=== PATIENT | male | born 1995 | race Two or more races ===

== ENCOUNTER 2022-10-03 11:52 | Outpatient (AMB) | payer OTHER, SELFPAY ==
--- NOTE | 2022-10-03 11:56 | MHC.OFFVIS ---
Intake Intake Visit Reasons: neurogenic bladder/cic Intake Note: Patient is present for initial visit neurogenic bladder Urology Medications: none Blood Thinner: none Masking Machine Operator Required: No Accompanied by: caregiver Allergies cefuroxime [From Ceftin] Allergy (Verified 10/05/22 14:46) Rash divalproex sodium [From Depakote] Allergy (Verified 10/05/22 14:46) Unknown Penicillins Allergy (Verified 10/05/22 14:46) Unknown phenytoin Allergy (Verified 10/05/22 14:46) Rash sulfamethoxazole [From Bactrim] Allergy (Verified 10/05/22 14:46) Unknown trimethoprim [From Bactrim] Allergy (Verified 10/05/22 14:46) Unknown levetiracetam [From Keppra] Adverse Reaction (Verified 10/05/22 14:46) behavior change Amoxicillin Allergy (Uncoded 10/05/22 14:46) Rash Phenobarbital Allergy (Uncoded 10/05/22 14:46) unknown Tegretol Allergy (Uncoded 10/05/22 14:46) Unknown Diamox Adverse Reaction (Uncoded 10/05/22 14:46) GI upset Medication List - Last Reconciled 10/05/22 by VENITA Delgado-BC acetaminophen (M-PAP) mg PO albuterol sulfate 2.5 mg inhalation Q4-6H PRN baclofen 5 mg PO TID baclofen 10 mg PO DAILY bisacodyl (OneLAX Bisacodyl) 10 mg WA DAILY brimonidine 0.2% 0 drps ophthalmic (eye) clonidine HCl mg PO clotrimazole-betamethasone 1-0.05 % appl topical BID diazepam mg PO diazepam 10 mg WA ONCE dorzolamide-timolol 22.3-6.8 mg/mL mL ophthalmic (eye) doxycycline monohydrate 20 mL PO BID ipratropium bromide mL inhalation ketoconazole 2% appl topical BID PRN lamotrigine 400 mg PO BID lamotrigine 50 mg feeding tube BID montelukast 10 mg PO DAILY mupirocin 2% topical netarsudil-latanoprost 0.02-0.005 % (Rocklatan) 0 drps ophthalmic (eye) nitrofurantoin macrocrystal 50 mg PO DAILY polyethylene glycol 3350 17 grams PO DAILY pot,sodium citrate-citric acid 550-500-334 mg/5 mL mL PO potassium chloride mEq PO potassium citrate-citric acid 1,100-334 mg/5 mL mL PO rufinamide mg PO sennosides (senna) mL PO triamcinolone acetonide 0.1% topical TID PRN HPI HPI Comments History of Present Illness Details Wade is a 27-year-old male patient of Dr. Oleary who was accompanied by his mom and CATALOGUE CLERK worker. He presents to the office today as a new patient for his neurogenic bladder and recurrent urinary tract infections. He has a past medical history of cerebral palsy, constipation, cortical blindness, GERD, [place]-gastaut syndrome, microcephaly, nephrolithiasis, neurogenic bladder, pseudo peritoneum, profound intellectual disability, seizure disorders, and sleep apnea. Wade is nonverbal and his mother provides all of today's history. Mom reports for many years she has been performing CIC on Wade. She reports to be performing CIC every 6 hours. She reports residuals to be between 300-600 mL of clear yellow urine. She reports noting over the last year patient has been experiencing more frequent urinary tract infections and given his long list of allergies it has been difficult to treat his urinary tract infections. She denies having follow-up with Urology in the past. She reports PCP to be managing patients supplies and recurrent UTIs. She reports having had issues with insurance coverage and attempting to find urologist that accepts patients insurance. When asked she reports noting foul-smelling urine and hematuria when patient does experience a UTI. She denies patient to have any UTI like symptoms at this time. Discussed at length suprapubic tube versus increase in CIC to every 4 hours due to increase residuals when perfroming CIC every 6 hours. Discussed effects of increased residuals. Mom reports patient to be on low-dose suppression therapy of 50 mg of nitrofurantoin daily. She reports last urinary tract infection was approximately 3 weeks ago at which time patient was hospitalized. When asked she reports patient to have had approximately 8 urinary tract infections over the last year. Discussed obtaining retroperitoneal ultrasound for further assessment evaluation. When asked she currently denies patient to have hematuria, foul smelling urine, pain, fever, and or chills. [facility] Medical History (Updated 10/05/22 @ 15:08 by MELIDA Delgado) Cerebral palsy Cerebral palsy with level 5 of gross motor function classification system (GMFCS) Constipation Cortical blindness Feeding problem GERD (gastroesophageal reflux disease) [place]-Gastaut syndrome Microcephaly Nephrolithiasis Neurogenic bladder Pneumoperitoneum Profound intellectual disability Seizure disorder Sleep apnea Weight loss Surgical History (Updated 09/11/22 @ 08:54 by Zhang Sue) History of Pina fundoplication History of testicular surgery Review of Systems Const Other (patient non verbal all HPI obtained from patients mom) Reports as per HPI Physical Exam Const General: comfortable and no acute distress Orientation/consciousness: Other orientation findings (non verbal) Limitations: wheelchair GI Inspection: Yes G-tube present Extrem Other: stiff and spastic at times. Psych Appearance: well kempt Attitude: cooperative Insight: Limited insight present (Psych) Judgement: Limited judgement present (Psych) Assessment & Plan Assessment & Plan (1) Neurogenic bladder: Code(s): N31.9 - Neuromuscular dysfunction of bladder, unspecified (2) Recurrent UTI: Code(s): N39.0 - Urinary tract infection, site not specified (3) Recurrent nephrolithiasis: Code(s): N20.0 - Calculus of kidney Plan Discussed at length suprapubic tube verses increase in CIC to every 4 hours Discussed methenamine and vitamin-C for suppression therapy verses low-dose nitrofurantoin. Discussed obtaining retroperitoneal ultrasound for further assessment evaluation. Discussed at length affects of recurrent urinary tract infections Discussed at length prevention of recurrent urinary tract infections in the setting of neurogenic bladder Patient's mother discusses she would like to discuss treatment plan with PCP (suprapubic tube versus increase in CIC) Patient utilizes [employer] for catheter supplies does not need new scripts at this time per mom Follow-up in 1-2 months with imaging to be completed prior; or sooner with any issues, concerns, and or questions. Orders: Orders US retroperitoneal comp 10/03/22 N31.9 - Neuromuscular dysfunction of bladder, unspecified Patient Instructions: The patient had an opportunity to ask questions regarding the treatment plan. All questions were answered. Physical exam, labs, and imaging were discussed and reviewed in detail. As well as risks, benefits, and discussion of treatment choices. No major barriers to understanding were identified. The patient expressed understanding and agreement with the above treatment plan. The patient was made aware they should contact our office by phone for worsening of their current condition, the appearance of new symptoms, or with any questions or concerns. Compliance is encouraged with any medications and follow up testing that is ordered. It is a privilege to be allowed the opportunity to participate in? your urological care.? Again, if you have any questions or concerns If you have any questions or concerns please do not hesitate to contact me. The office is [phone]. This note is constructed using voice recognition software. While every effort has been made to ensure accuracy nut grader errors may have been included. Yours sincerely, MELIDA Delgado Coding Level of Care Code New Pt Level 3 (91602) Diagnoses Neurogenic bladder N31.9 Recurrent UTI N39.0 Recurrent nephrolithiasis N20.0
== END 2022-10-03 12:21 | disposition home or self-care (01) ==
PROVIDERS: PCP Pediatrics; Visit Provider Nurse Practitioner Family
DX: N31.9 Neuromuscular dysfunction of bladder, unspecified (principal); N39.0 Urinary tract infection, site not specified; N20.0 Calculus of kidney
CPT/HCPCS: 99203

== ENCOUNTER → 2022-10-03 11:52 | Outpatient (BNVA) | payer OTHER, SELFPAY | PROVIDERS: PCP Pediatrics; Visit Provider Nurse Practitioner Family | DX: N31.9 Neuromuscular dysfunction of bladder, unspecified (principal); N39.0 Urinary tract infection, site not specified; N20.0 Calculus of kidney | CPT/HCPCS: 99202 ==

== ENCOUNTER 2022-10-16 09:24 | Outpatient (REF) | payer OTHER, SELFPAY ==
--- NOTE | ~2022-10-16 | US_ITS ---
EXAMINATION: US RETROPERITONEAL COMPLETE (RENAL) CLINICAL INFORMATION: Neuromuscular dysfunction of bladder, unspecified. COMPARISON: X-ray abdomen KUB 12/10/2005 (report only). TECHNIQUE: Real-time imaging of the kidneys and bladder. Technically difficult study secondary to scanning performed with the patient in a wheelchair. Cerebral palsy, scanned in wheelchair, limiting visualization. FINDINGS: RIGHT KIDNEY: 9.7 x 4.1 x 3.9 cm (SAG x AP x TRV). No hydronephrosis. No renal calculi. Limited visualization. A 1.2 x 1.0 x 1.4 cm lower pole cyst appears benign. There is no indication for follow up imaging. LEFT KIDNEY: 8.8 x 4.7 x 4.1 cm (SAG x AP x TRV). No hydronephrosis. No renal calculi. Limited visualization. BLADDER: Partially distended, limiting evaluation. Bilateral ureteral jets are demonstrated. Prevoid bladder volume is 66.3 mL. Postvoid bladder volume was not obtained as environmental conflict manager stated unable to obtain these images due to physical limitations. Prostate volume 36.4 mL. US/US retroperitoneal comp IMPRESSION: 1. No hydronephrosis. No renal calculi. Limited visualization. 2. Postvoid bladder volume was not obtained as environmental conflict manager stated unable to obtain these images due to physical limitations. 3. Prostate volume 36.4 mL.
== END 2022-10-16 09:25 | disposition home or self-care (01) ==
LOC: HO.US 09:24
PROVIDERS: PCP Pediatrics; Visit Provider Nurse Practitioner Family
DX: N31.9 Neuromuscular dysfunction of bladder, unspecified (principal)
CPT/HCPCS: 76770

== ENCOUNTER 2022-12-12 12:00 | Outpatient (AMB) | payer OTHER, SELFPAY ==
--- NOTE | 2022-12-12 12:27 | A.OFFVIS_ITS ---
Intake Intake Visit Reasons: 1m follow up(set) Intake Note: Patient presents for follow up visit neurogenic bladder/CIC/ultrasound (imaging 10/16/22) Urology Medications: none Blood Thinner: none Information Consultant Required: No Accompanied by: Self / Same As Patient Allergies cefuroxime [From Ceftin] Allergy (Verified 12/12/22 12:35) Rash divalproex sodium [From Depakote] Allergy (Verified 12/12/22 12:35) Unknown Penicillins Allergy (Verified 12/12/22 12:35) Unknown phenytoin Allergy (Verified 12/12/22 12:35) Rash sulfamethoxazole [From Bactrim] Allergy (Verified 12/12/22 12:35) Unknown trimethoprim [From Bactrim] Allergy (Verified 12/12/22 12:35) Unknown levetiracetam [From Keppra] Adverse Reaction (Verified 12/12/22 12:35) behavior change Amoxicillin Allergy (Uncoded 12/12/22 12:35) Rash Phenobarbital Allergy (Uncoded 12/12/22 12:35) unknown Tegretol Allergy (Uncoded 12/12/22 12:35) Unknown Diamox Adverse Reaction (Uncoded 12/12/22 12:35) GI upset HPI HPI Comments History of Present Illness Details Wade is a 27-year-old male patient of Dr. Oleary who was accompanied by his mom and dad at todays visit. He has a past medical history of cerebral palsy, constipation, cortical blindness, GERD, [place]-gastaut syndrome, microcephaly, nephrolithiasis, neurogenic bladder, pseudo peritoneum, profound intellectual disability, seizure disorders, and sleep apnea. Wade is nonverbal and his mother provides all of today's history. He presents to the office today for follow-up. Of note, patient was seen approximately 2 months ago as a new patient for his neurogenic bladder and recurrent urinary tract infections at which time a retroperitoneal ultrasound was ordered for further assessment evaluation. These results were reviewed with the patient and his parents today. Right kidney with no hydronephrosis or renal calculi. A 1.2 x 1.0 x 1.4 cm lower pole cyst appears benign. There is no indication for follow up imaging per radiology report. Left kidney with no hydronephrosis or renal calculi. The bladder is partially distended, limiting evaluation. Bilateral ureteral jets are demonstrated. Prevoid bladder volume is approximately 65 mLs. Postvoid bladder volume was not obtained as conductor/engineer stated unable to obtain these images due to physical limitations. Prostate volume is approximately 36 mL. Mom reports for many years she has been performing CIC on Wade. She reports to be performing CIC every 6 hours. She reports residuals to be between 300-600 mL of clear yellow urine. She reports noting over the last year patient has been experiencing more frequent urinary tract infections and given his long list of allergies it has been difficult to treat his urinary tract infections. She denies having follow- up with Urology in the past. She reports PCP to be managing patients supplies and recurrent UTIs. During last office visit recommendations were made to increase CIC to every 4 hours due to increased residuals when performing CIC every 6 hours. In discussion with the mom today she reports since his last office visit here approximately 2 months ago he has experienced another urinary tract infection and discusses given information provided regarding suprapubic tube verses increase in CIC during last office visit she would like to move forward with suprapubic tube placement. Risks and benefits were discussed at length with both mom and dad at today's visit. Dr. Gary in to discuss risk and benifits as well as to discuss surgical procedure. All questions were answered. When asked she currently denies patient to have hematuria, foul smelling urine, pain, fever, and or chills. [facility] Medical History Weight loss Sleep apnea Seizure disorder Profound intellectual disability Pneumoperitoneum Neurogenic bladder Nephrolithiasis Microcephaly [place]-Gastaut syndrome GERD (gastroesophageal reflux disease) Feeding problem Cortical blindness Constipation Cerebral palsy with level 5 of gross motor function classification system (GMFCS) Cerebral palsy Surgical History History of testicular surgery History of Pina fundoplication Review of Systems Const Other (patient non verbal all HPI obtained from patients mom) Reports as per HPI Physical Exam Const General: comfortable and no acute distress Orientation/consciousness: Other orientation findings (non verbal) Limitations: wheelchair GI Inspection: Yes G-tube present Extrem Other: stiff and spastic at times. Psych Appearance: well kempt Attitude: cooperative Insight: Limited insight present (Psych) Judgement: Limited judgement present (Psych) Results Reviewed Results Reviewed: Date of Service: 10/16/22 EXAMINATION: US RETROPERITONEAL COMPLETE (RENAL) FINDINGS: RIGHT KIDNEY: 9.7 x 4.1 x 3.9 cm (SAG x AP x TRV). No hydronephrosis. No renal calculi. Limited visualization. A 1.2 x 1.0 x 1.4 cm lower pole cyst appears benign. There is no indication for follow up imaging. LEFT KIDNEY: 8.8 x 4.7 x 4.1 cm (SAG x AP x TRV). No hydronephrosis. No renal calculi. Limited visualization. BLADDER: Partially distended, limiting evaluation. Bilateral ureteral jets are demonstrated. Prevoid bladder volume is 66.3 mL. Postvoid bladder volume was not obtained as conductor/engineer stated unable to obtain these images due to physical limitations. Prostate volume 36.4 mL. IMPRESSION: 1. No hydronephrosis. No renal calculi. Limited visualization. 2. Postvoid bladder volume was not obtained as conductor/engineer stated unable to obtain these images due to physical limitations. 3. Prostate volume 36.4 mL. Assessment & Plan Assessment & Plan (1) Neurogenic bladder: Code(s): N31.9 - Neuromuscular dysfunction of bladder, unspecified (2) Recurrent UTI: Code(s): N39.0 - Urinary tract infection, site not specified Plan: Risks, benefits and alternatives to therapy were discussed. These include but are not limited to infection, bleeding, damage to local organs and tissues, need for further interventions. ? Anesthetic risks regarding cardiac arrhythmia, blood clots, and potential mortality were discussed. The patient understands the typical recovery time and the outpatient nature of the procedure. After consideration of these risks the patient gives full informed consent and they wish to move ahead with the procedure. Plan Discussed recent retroperitoneal ultrasound results with the patient's parents today; as noted above. Discussed at length increase in CIC to every 4 hours verses 6 hours verses suprapubic tube placement in the setting of neurogenic bladder with recurrent urinary tract infections. Continue nitrofurantoin 50 mg daily. Start methenamine and vitamin-C as discussed and prescribed. Discussed at length risks and benefits of suprapubic tube placement All questions were answered Will schedule for suprapubic tube placement with Dr. Gary as discussed Follow-up status post surgical procedure per Dr. Gary's orders; or sooner with any issues, concerns, and or questions. Medications: New methenamine hippurate 1 g PO DAILY 90 days 90 tabs 1RF N39.0 - Urinary tract infection, site not specified ascorbic acid (vitamin C) 1 g PO DAILY 90 days 90 tabs 1RF N39.0 - Urinary tract infection, site not specified Patient Instructions: The patient had an opportunity to ask questions regarding the treatment plan. All questions were answered. Physical exam, labs, and imaging were discussed and reviewed in detail. As well as risks, benefits, and discussion of treatment choices. No major barriers to understanding were identified. The patient expressed understanding and agreement with the above treatment plan. The patient was made aware they should contact our office by phone for worsening of their current condition, the appearance of new symptoms, or with any questions or concerns. Compliance is encouraged with any medications and follow up testing that is ordered. It is a privilege to be allowed the opportunity to participate in? your urological care.? Again, if you have any questions or concerns If you have any questions or concerns please do not hesitate to contact me. The office is [phone]. This note is constructed using voice recognition software. While every effort has been made to ensure accuracy parent partner errors may have been included. Yours sincerely, MELIDA Delgado Coding Level of Care Code Est Pt Level 4 (57556) Diagnoses Neurogenic bladder N31.9 Recurrent UTI N39.0
== END 2022-12-12 13:00 | disposition home or self-care (01) ==
PROVIDERS: PCP Pediatrics; Visit Provider Nurse Practitioner Family
DX: N31.9 Neuromuscular dysfunction of bladder, unspecified (principal); N39.0 Urinary tract infection, site not specified
CPT/HCPCS: 99214

== ENCOUNTER → 2022-12-12 12:00 | Outpatient (BNVA) | payer OTHER, SELFPAY | PROVIDERS: PCP Pediatrics; Visit Provider Nurse Practitioner Family | DX: N31.9 Neuromuscular dysfunction of bladder, unspecified (principal); N39.0 Urinary tract infection, site not specified; Z79.899 Other long term (current) drug therapy | CPT/HCPCS: 99212 ==

== ENCOUNTER 2023-02-16 10:41 | Day surgery (SDC) | payer OTHER, SELFPAY ==
--- NOTE | 2023-02-10 14:29 | P.CONAN_ITS ---
Documented by User: Kyra Brownlee NP 02/10/23 14:31 HPI - Anesthesia Eval Consult details Narrative: 27yo M for Insertion Suprapubic Tube Cerebral palsy Ilya-Gastaut syndrome (seizures) [facility] Active Problems Active Problems: All Active Problems (Updated 10/05/22 @ 15:08 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 GERD (gastroesophageal reflux disease) Feeding problem Cortical blindness Constipation Cerebral palsy with level 5 of gross motor function classification system (GMFCS) Cerebral palsy Surgical History Surgical History (Updated 02/11/23 @ 10:34 by Christina Duarte, DADA) History of hip surgery History of testicular surgery History of Pina fundoplication Social History Are you a primary toddler caregiver to a significant other at home: No Patient Tobacco Use Status: Never used Tobacco Meds Allergies Allergy/AdvReac Type Severity Reaction Status Date / Time cefuroxime [From Ceftin] Allergy Rash Verified 12/12/22 12:35 divalproex sodium Allergy Unknown Verified 12/12/22 12:35 [From Depakote] Penicillins Allergy Unknown Verified 12/12/22 12:35 phenytoin Allergy Rash Verified 12/12/22 12:35 sulfamethoxazole Allergy Unknown Verified 12/12/22 12:35 [From Bactrim] trimethoprim [From Bactrim] Allergy Unknown Verified 12/12/22 12:35 levetiracetam [From Keppra] AdvReac behavior Verified 12/12/22 12:35 change Amoxicillin Allergy Rash Uncoded 12/12/22 12:35 Phenobarbital Allergy unknown Uncoded 12/12/22 12:35 Tegretol Allergy Unknown Uncoded 12/12/22 12:35 Diamox AdvReac GI upset Uncoded 12/12/22 12:35 Home Medications Medication Instructions Recorded Confirmed Last Taken Type acetaminophen 160 mg/5 mL oral 160 mg feeding tube TID PRN Pain 10/03/22 02/11/23 Unknown History liquid (M-PAP) albuterol sulfate 2.5 mg/3 mL 2.5 mg inhalation Q4-6H PRN 10/03/22 02/11/23 Unknown History (0.083 %) solution for nebulization respiratory distress baclofen 10 mg tablet 10 mg feeding tube DAILY@0730 10/03/22 02/11/23 Unknown History baclofen 5 mg tablet 7.5 mg feeding tube .@1400+2100 10/03/22 02/11/23 Unknown History bisacodyl 10 mg rectal suppository 10 mg UT DAILY 10/03/22 02/11/23 Unknown History (OneLAX Bisacodyl) brimonidine 0.2 % eye drops 1 drp ophthalmic (eye) .BID BOTH 10/03/22 02/11/23 Unknown History EYES clonidine HCl 0.1 mg tablet 0.1 mg feeding tube BEDTIME 10/03/22 02/11/23 Unknown History clotrimazole-betamethasone 1 appl topical BID 10/03/22 Unknown History %-0.05 % topical cream diazepam 5 mg-7.5 mg-10 mg rectal 10 mg UT ONCE PRN Seizures 10/03/22 02/11/23 Unknown History kit diazepam 5 mg/5 mL (1 mg/mL) oral 4 mg PO TID 10/03/22 02/11/23 Unknown History solution dorzolamide 22.3 mg-timolol 6.8 1 ml ophthalmic (eye) .BID RIGHT 10/03/22 02/11/23 Unknown History mg/mL eye drops EYE doxycycline monohydrate 25 mg/5 mL 20 ml feeding tube BID 10/03/22 02/11/23 Unknown History oral suspension ipratropium bromide 0.02 % ml inhalation DAILY 10/03/22 Unknown History solution for inhalation ketoconazole 2 % topical cream appl topical BID PRN Rash 10/03/22 Unknown History lamotrigine 200 mg tablet 400 mg feeding tube BID 10/03/22 02/11/23 Unknown History lamotrigine 25 mg tablet 50 mg feeding tube BID 10/03/22 02/11/23 Unknown History montelukast 10 mg tablet 10 mg PO DAILY 10/03/22 02/11/23 Unknown History mupirocin 2 % topical ointment topical 10/03/22 Unknown History netarsudil 0.02 %-latanoprost 1 drp ophthalmic (eye) .BEDTIME 10/03/22 02/11/23 Unknown History 0.005 % eye drops (Rocklatan) BOTH EYES nitrofurantoin macrocrystal 50 mg 50 mg feeding tube DAILY 10/03/22 02/11/23 Unknown History capsule polyethylene glycol 3350 17 17 g feeding tube DAILY 10/03/22 02/11/23 Unknown History gram/dose oral powder potas and sod citrate-citric acid ml PO 10/03/22 Unknown History 550 mg-500 mg-334 mg/5 mL oral soln potassium chloride 20 mEq/15 mL meq feeding tube .DAILY VIA G-TUBE 10/03/22 Unknown History oral liquid potassium citrate-citric acid ml PO .DAILY VIA G-TUBE 10/03/22 Unknown History 1,100 mg-334 mg/5 mL oral solution rufinamide 400 mg tablet mg feeding tube BID 10/03/22 Unknown History sennosides 8.8 mg/5 mL oral syrup 10 ml feeding tube DAILY 10/03/22 02/11/23 Unknown History (senna) triamcinolone acetonide 0.1 % topical TID PRN Skin Irritation 10/03/22 Unknown History lotion ascorbic acid (vitamin C) 1,000 mg 1 g feeding tube DAILY 02/11/23 02/11/23 Unknown History tablet methenamine hippurate 1 gram tablet 1 g feeding tube DAILY 02/11/23 02/11/23 Unknown History Assessment and Plan Assessment Anesthesia Assessment: Chart Reviewed Documented by User: Hay Lamar MD 02/16/23 10:15 [facility] Past Medical History Medical History (Updated 02/11/23 @ 10:34 by Christina Duarte, DADA) Jejunostomy tube present Gastrostomy tube in place Wheelchair dependent Weight loss Sleep apnea Seizure disorder Profound intellectual disability Pneumoperitoneum Neurogenic bladder Nephrolithiasis 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 GERD (gastroesophageal reflux disease) Feeding problem Cortical blindness Constipation Cerebral palsy with level 5 of gross motor function classification system (GMFCS) Cerebral palsy Family History Family history of problems with anesthesia: No Surgical History Surgical History (Updated 02/11/23 @ 10:34 by Christina Duarte RN) History of hip surgery History of testicular surgery History of Pina fundoplication History of Problems with Anesthesia: No Social History Are you a primary toddler caregiver to a significant other at home: No Patient Tobacco Use Status: Never used Tobacco Meds Allergies Allergy/AdvReac Type Severity Reaction Status Date / Time cefuroxime [From Ceftin] Allergy Rash Verified 12/12/22 12:35 divalproex sodium Allergy Unknown Verified 12/12/22 12:35 [From Depakote] Penicillins Allergy Unknown Verified 12/12/22 12:35 phenytoin Allergy Rash Verified 12/12/22 12:35 sulfamethoxazole Allergy Unknown Verified 12/12/22 12:35 [From Bactrim] trimethoprim [From Bactrim] Allergy Unknown Verified 12/12/22 12:35 levetiracetam [From Keppra] AdvReac behavior Verified 12/12/22 12:35 change Amoxicillin Allergy Rash Uncoded 12/12/22 12:35 Phenobarbital Allergy unknown Uncoded 12/12/22 12:35 Tegretol Allergy Unknown Uncoded 12/12/22 12:35 Diamox AdvReac GI upset Uncoded 12/12/22 12:35 Home Medications Medication Instructions Recorded Confirmed Last Taken Type acetaminophen 160 mg/5 mL oral 160 mg feeding tube TID PRN Pain 10/03/22 02/11/23 Unknown History liquid (M-PAP) albuterol sulfate 2.5 mg/3 mL 2.5 mg inhalation Q4-6H PRN 10/03/22 02/11/23 Unknown History (0.083 %) solution for nebulization respiratory distress baclofen 10 mg tablet 10 mg feeding tube DAILY@0730 10/03/22 02/11/23 Unknown History baclofen 5 mg tablet 7.5 mg feeding tube .@1400+2100 10/03/22 02/11/23 Unknown History bisacodyl 10 mg rectal suppository 10 mg UT DAILY 10/03/22 02/11/23 Unknown History (OneLAX Bisacodyl) brimonidine 0.2 % eye drops 1 drp ophthalmic (eye) .BID BOTH 10/03/22 02/11/23 Unknown History EYES clonidine HCl 0.1 mg tablet 0.1 mg feeding tube BEDTIME 10/03/22 02/11/23 Unknown History clotrimazole-betamethasone 1 appl topical BID 10/03/22 Unknown History %-0.05 % topical cream diazepam 5 mg-7.5 mg-10 mg rectal 10 mg UT ONCE PRN Seizures 10/03/22 02/11/23 Unknown History kit diazepam 5 mg/5 mL (1 mg/mL) oral 4 mg PO TID 10/03/22 02/11/23 Unknown History solution dorzolamide 22.3 mg-timolol 6.8 1 ml ophthalmic (eye) .BID RIGHT 10/03/22 02/11/23 Unknown History mg/mL eye drops EYE doxycycline monohydrate 25 mg/5 mL 20 ml feeding tube BID 10/03/22 02/11/23 Unknown History oral suspension ipratropium bromide 0.02 % ml inhalation DAILY 10/03/22 Unknown History solution for inhalation ketoconazole 2 % topical cream appl topical BID PRN Rash 10/03/22 Unknown History lamotrigine 200 mg tablet 400 mg feeding tube BID 10/03/22 02/11/23 Unknown History lamotrigine 25 mg tablet 50 mg feeding tube BID 10/03/22 02/11/23 Unknown History montelukast 10 mg tablet 10 mg PO DAILY 10/03/22 02/11/23 Unknown History mupirocin 2 % topical ointment topical 10/03/22 Unknown History netarsudil 0.02 %-latanoprost 1 drp ophthalmic (eye) .BEDTIME 10/03/22 02/11/23 Unknown History 0.005 % eye drops (Rocklatan) BOTH EYES nitrofurantoin macrocrystal 50 mg 50 mg feeding tube DAILY 10/03/22 02/11/23 Unknown History capsule polyethylene glycol 3350 17 17 g feeding tube DAILY 10/03/22 02/11/23 Unknown History gram/dose oral powder potas and sod citrate-citric acid ml PO 10/03/22 Unknown History 550 mg-500 mg-334 mg/5 mL oral soln potassium chloride 20 mEq/15 mL meq feeding tube .DAILY VIA G-TUBE 10/03/22 Unknown History oral liquid potassium citrate-citric acid ml PO .DAILY VIA G-TUBE 10/03/22 Unknown History 1,100 mg-334 mg/5 mL oral solution rufinamide 400 mg tablet mg feeding tube BID 10/03/22 Unknown History sennosides 8.8 mg/5 mL oral syrup 10 ml feeding tube DAILY 10/03/22 02/11/23 Unknown History (senna) triamcinolone acetonide 0.1 % topical TID PRN Skin Irritation 10/03/22 Unknown History lotion ascorbic acid (vitamin C) 1,000 mg 1 g feeding tube DAILY 02/11/23 02/11/23 Unknown History tablet methenamine hippurate 1 gram tablet 1 g feeding tube DAILY 02/11/23 02/11/23 Unknown History Exam Airway Mallampati Class: Patient Non-Cooperative TM Dist: >3cm Neck ROM: Limited Heart: rrr Lungs: cta Assessment and Plan Assessment Anesthesia Assessment: Anesthesia Plan Discussed Final Anesthetic Review Family History of Problems with Anesthesia: No History of Problems with Anesthesia: No NPO: Yes ASA Class: IV Final Preanesthetic Review: No Changes in Pt Med Stat, Meds/Allgs Chart Reviewed, Consent Obtained/Reviewed and Anes Risks/Benef Reviewed Patient Risk: Intermediate Procedure Risk: Low Anesthetic Plan Anesthetic Plan: GA and Agree w/ Assess. and Plan Disposition: Standard PACU
[2023-02-16 11:41] VITALS: BP 104/71; PULSE 74; RESP 20; TEMP 36.5; O2SAT 96
--- NOTE | 2023-02-16 12:06 | PC.NURSE ---
Unable to start IV in prep area. Anesthesia aware and will start in OR.
[2023-02-16 13:25] VITALS: BP 98/52; PULSE 95; RESP 16; TEMP 36.1; O2SAT 97
[2023-02-16 13:30] VITALS: BP 106/58; PULSE 88; RESP 16; O2SAT 97
[2023-02-16 13:35] VITALS: BP 100/57; PULSE 84; RESP 16; O2SAT 96
[2023-02-16 13:39] VITALS: BP 109/61; PULSE 82; RESP 16; O2SAT 97
[2023-02-16 13:54] VITALS: BP 107/69; PULSE 80; RESP 18; TEMP 36.2; O2SAT 97
--- NOTE | 2023-02-16 14:32 | P.OP_ITS ---
Operative Note Operative Note Date of Service: 02/16/23 Narrative: PreOperative Diagnosis:?neurogenic bladder Post Operative Diagnosis:?neurogenic bladder Procedure:? 1. Cystoscopy 2. Suprapubic tube placement Surgeon: Dr Gilbert Gary Anesthesia:?Sedation plus local Indications for procedure: Born with developmental delay and CP neurogenic bladder. Has been catheterised since . Procedure: After informed consent was verified the patient was brought to the operating room and placed in a supine position.? Anesthesia was administered per protocol. The patient was placed in a modified dorsal lithotomy position and prepped and draped in a sterile fashion. A safety pause was performed confirming patient identity, procedure and antibiotics. A 22 Portuguese cystoscope was inserted per urethra. Bladder was examined in its entirety. No abnormalities seen. Air bubble was located at the dome of the bladder. A finder needle was inserted 2 fingerbreaths above the symphysis pubis on the abdomen into the bladder.? The needle was visualized in the bladder via cystoscopy. Local anesthetic was infiltrated subcutaneously around the needle introduction site. A small, 1cm horizontal incision was made.? A trocar introducer was advanced through the abdominal wall into the bladder under visualization. The obturator was removed and a 16 Fr lynch catheter placed. 7cc was used to inflate the balloon. The external portion of the trocar was removed. Dressing was placed, the bladder was emptied, and a drainage bag was attached. The patient tolerated the procedure and was transferred in stable condition to the recovery area. Suprapubic tube will be changed in 1 month with a follow-up office visit.
== END 2023-02-16 14:33 | disposition home or self-care (01) ==
PROVIDERS: PCP Internal Medicine; Visit Provider Urology
PROC: (CPT 51102; principal; 2023-02-16 13:00)
DX: N31.9 Neuromuscular dysfunction of bladder, unspecified (principal); N39.0 Urinary tract infection, site not specified; R62.50 Unspecified lack of expected normal physiological development in childhood; F73 Profound intellectual disabilities; G80.9 Cerebral palsy, unspecified; G40.812 Lennox-Gastaut syndrome, not intractable, without status epilepticus; G40.909 Epilepsy, unspecified, not intractable, without status epilepticus; Q02 Microcephaly; Z93.4 Other artificial openings of gastrointestinal tract status; H47.619 Cortical blindness, unspecified side of brain; Z99.3 Dependence on wheelchair; Z88.0 Allergy status to penicillin; Z88.1 Allergy status to other antibiotic agents; Z88.8 Allergy status to other drugs, medicaments and biological substances; Z79.890 Hormone replacement therapy
CPT/HCPCS: 51102; J1956; J2250; J2704; J2795; J3010

== ENCOUNTER → 2023-02-16 10:41 | Outpatient (BNV) | payer OTHER, SELFPAY | PROVIDERS: PCP Internal Medicine; Visit Provider Urology | DX: N31.9 Neuromuscular dysfunction of bladder, unspecified (principal) | CPT/HCPCS: 51020 ==

== ENCOUNTER → 2023-02-19 08:54 | Outpatient (BNVA) | payer OTHER, SELFPAY | PROVIDERS: PCP Internal Medicine; Visit Provider Urology ==

== ENCOUNTER 2023-03-13 10:50 | Outpatient (AMB) | payer OTHER, SELFPAY ==
--- NOTE | 2023-03-13 11:19 | MHC.OFFVIS ---
Intake Intake Visit Reasons: one month (spt change first) Intake Note: Patient is Present for Follow Up Urology Medication: Methenamine Antibiotic Allergies: Penicillins, Sulfa, Trimethoprim, Amoxicillin Blood Thinners: None Allergies cefuroxime [From Ceftin] Allergy (Verified 02/16/23 11:17) Rash divalproex sodium [From Depakote] Allergy (Verified 02/16/23 11:17) Unknown Penicillins Allergy (Verified 02/16/23 11:17) Unknown phenytoin Allergy (Verified 02/16/23 11:17) Rash sulfamethoxazole [From Bactrim] Allergy (Verified 02/16/23 11:17) Unknown trimethoprim [From Bactrim] Allergy (Verified 02/16/23 11:17) Unknown levetiracetam [From Keppra] Adverse Reaction (Verified 02/16/23 11:17) behavior change Amoxicillin Allergy (Uncoded 02/16/23 11:17) Rash Phenobarbital Allergy (Uncoded 02/16/23 11:17) unknown Tegretol Allergy (Uncoded 02/16/23 11:17) Unknown Diamox Adverse Reaction (Uncoded 02/16/23 11:17) GI upset HPI HPI Comments History of Present Illness Details Wade is a pleasant male. He is a patient of Dr. Oleary. 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 GERD (gastroesophageal reflux disease) Feeding problem Cortical blindness Constipation Cerebral palsy with level 5 of gross motor function classification system (GMFCS) Cerebral palsy Surgical History History of hip surgery History of testicular surgery History of Pina fundoplication Social History Are you a primary child care leader to a significant other at home: No Patient Tobacco Use Status: Never used Tobacco Review of Systems Const Denies chills and Denies fever(s) Card Reports no additional complaints and Denies syncope Resp Denies cough GI Denies abdominal pain and Denies heartburn Reports as per HPI and Denies change in libido Neuro Denies syncope Psych Denies change in libido Endo Denies change in libido Physical Exam Const General: cooperative, healthy appearing, comfortable and no acute distress Orientation/consciousness: patient oriented x3 HEENT Face and sinus: Yes normal facial exam Mouth: moist mucous membranes Neck Neck: Yes normal visual inspection, Yes full ROM and Yes trachea midline Chest Chest palpation & inspection: normal inspection of the chest Resp Effort & Inspection: normal respiratory effort, able to speak in complete sentences and no respiratory distress GI Inspection: Yes normal to inspection Back/Spine/Pelvis Cervical Spine: normal cervical lordosis Thoracic/Lumbar Spine: thoracic and lumbar spine normal to inspection Skin General skin exam: no rashes or lesions noted Neuro General: patient oriented x3, gait normal, tone normal and moves all extremities Extrem General: Yes normal to inspection and Yes capillary refill normal Office Procedures Bladder/Catheter Procedure Details: 18 Fr upgrade Clean procedure 7cc in catheter 94038-Whhcap of bladder tube Procedure code (CPT) selection complete Assessment & Plan Assessment & Plan (1) Neurogenic bladder: Code(s): N31.9 - Neuromuscular dysfunction of bladder, unspecified (2) Recurrent UTI: Code(s): N39.0 - Urinary tract infection, site not specified (3) Recurrent nephrolithiasis: Code(s): N20.0 - Calculus of kidney Plan Monthly SPT change Medications: New drainage bag ([employer] Urinary Drain Bag) As directed 1 ea 11RF Neurogenic bladder N31.9 - Neuromuscular dysfunction of bladder, unspecified, R33.9 - Retention of urine, unspecified urinary bag ([employer] Urinary Leg Bag) Change weekly 4 ea 5RF N31.9 - Neuromuscular dysfunction of bladder, unspecified Patient Instructions: Imaging studies, laboratory and physical exam results were discussed and reviewed in detail. No major barriers to patient understanding were identified. An opportunity to ask questions regarding the treatment plan was provided. All questions were answered. The patient expressed understanding and agreement with the above treatment plan. The patient is aware they should contact our office by phone for worsening of their current condition or the appearance of new urologic symptoms. Compliance is encouraged with any medications and followup testing that is ordered. It is a privilege to participate in the urologic care of your patient. If you have any questions or concerns regarding treatment for the above conditions, or other urologic issues, please do not hesitate to contact me. The office telephone contact is [phone]. This note is constructed using voice recognition software. While every effort has been made to ensure accuracy body shop worker errors may have been included. Yours sincerely, Dr Gilbert Gary MD, [facility] - Urology Providers of Expert, Compassionate Care for the Genitourinary System Coding Level of Care Code Est Pt Level 3 (82082) Diagnoses Neurogenic bladder N31.9 Recurrent UTI N39.0 Recurrent nephrolithiasis N20.0 CPT Codes Bladder/Catheter Procedure - CPT: 55388-Eidypm of bladder tube ([id number])
== END 2023-03-13 12:07 | disposition home or self-care (01) ==
PROVIDERS: PCP Pediatrics; Visit Provider Urology
DX: N31.9 Neuromuscular dysfunction of bladder, unspecified (principal); N39.0 Urinary tract infection, site not specified; N20.0 Calculus of kidney; Z96.0 Presence of urogenital implants
CPT/HCPCS: 51705; 99024

== ENCOUNTER → 2023-03-13 10:50 | Outpatient (BNVA) | payer OTHER, SELFPAY | PROVIDERS: PCP Pediatrics; Visit Provider Urology | DX: N31.9 Neuromuscular dysfunction of bladder, unspecified (principal); N39.0 Urinary tract infection, site not specified; N20.0 Calculus of kidney | CPT/HCPCS: 51705; 99212 ==

== ENCOUNTER → 2023-04-16 10:46 | Outpatient (BNVA) | payer OTHER, SELFPAY | PROVIDERS: PCP Pediatrics; Visit Provider Urology | DX: N31.9 Neuromuscular dysfunction of bladder, unspecified (principal) | CPT/HCPCS: 51705 ==

== ENCOUNTER → 2023-05-14 09:55 | Outpatient (BNVA) | payer OTHER, SELFPAY | PROVIDERS: PCP Pediatrics; Visit Provider Urology | DX: N31.9 Neuromuscular dysfunction of bladder, unspecified (principal) | CPT/HCPCS: 51705 ==

== ENCOUNTER → 2023-06-18 09:50 | Outpatient (BNVA) | payer OTHER, SELFPAY | PROVIDERS: PCP Pediatrics; Visit Provider Urology | DX: N31.9 Neuromuscular dysfunction of bladder, unspecified (principal) | CPT/HCPCS: 51705 ==

== ENCOUNTER → 2023-07-17 09:20 | Outpatient (BNVA) | payer MEDICAID, SELFPAY | PROVIDERS: PCP Pediatrics; Visit Provider Urology | DX: Z43.5 Encounter for attention to cystostomy (principal); N31.9 Neuromuscular dysfunction of bladder, unspecified | CPT/HCPCS: 51705 ==

== ENCOUNTER → 2023-08-13 09:49 | Outpatient (BNVA) | payer MEDICAID, SELFPAY | PROVIDERS: PCP Pediatrics; Visit Provider Urology | DX: N31.9 Neuromuscular dysfunction of bladder, unspecified (principal) | CPT/HCPCS: 51705 ==

== ENCOUNTER 2023-09-18 08:39 | Outpatient (AMB) | payer MEDICAID, SELFPAY ==
--- NOTE | 2023-09-18 08:42 | MHC.OFFVIS ---
Intake Visit Reasons: 6m/4W SPT Change Intake Note: Patient is present for 6m/4w f/u SPT change Urology Medication:ascorbic acid,methenamine Antibiotic Allergy:penicillin,sulfa,amoxicillin. Blood Thinner:none Automotive Lot Attendant Required: No Allergies cefuroxime [From Ceftin] Allergy (Verified 09/18/23 08:48) Rash divalproex sodium [From Depakote] Allergy (Verified 09/18/23 08:48) Unknown Penicillins Allergy (Verified 09/18/23 08:48) Unknown phenytoin Allergy (Verified 09/18/23 08:48) Rash sulfamethoxazole [From Bactrim] Allergy (Verified 09/18/23 08:48) Unknown trimethoprim [From Bactrim] Allergy (Verified 09/18/23 08:48) Unknown levetiracetam [From Keppra] Adverse Reaction (Verified 09/18/23 08:48) behavior change Amoxicillin Allergy (Uncoded 09/18/23 08:48) Rash Phenobarbital Allergy (Uncoded 09/18/23 08:48) unknown Tegretol Allergy (Uncoded 09/18/23 08:48) Unknown Diamox Adverse Reaction (Uncoded 09/18/23 08:48) GI upset Medication List - Last Reconciled 09/18/23 by Gilbert Gary MD acetaminophen (M-PAP) 160 mg feeding tube TID PRN albuterol sulfate 2.5 mg inhalation Q4-6H PRN ascorbic acid (vitamin C) 1 g feeding tube DAILY 90 days baclofen 7.5 mg feeding tube .@1400+2100 baclofen 10 mg feeding tube DAILY@0730 bisacodyl (OneLAX Bisacodyl) 10 mg SD DAILY brimonidine 0.2% 1 drp ophthalmic (eye) .BID BOTH EYES clonidine HCl 0.1 mg feeding tube BEDTIME clotrimazole-betamethasone 1-0.05 % appl topical BID diazepam 4 mg PO TID diazepam 10 mg SD ONCE PRN dorzolamide-timolol 22.3-6.8 mg/mL 1 mL ophthalmic (eye) .BID RIGHT EYE doxycycline monohydrate 20 mL feeding tube BID drainage bag (Kenguard Urinary Drain Bag) As directed ipratropium bromide mL inhalation DAILY ketoconazole 2% appl topical BID PRN lamotrigine 400 mg feeding tube BID lamotrigine 50 mg feeding tube BID levofloxacin 250 mg PO DAILY 5 days methenamine hippurate 1 g feeding tube DAILY 90 days montelukast 10 mg PO DAILY mupirocin 2% topical netarsudil-latanoprost 0.02-0.005 % (Rocklatan) 1 drp ophthalmic (eye) .BEDTIME BOTH EYES nitrofurantoin macrocrystal 50 mg feeding tube DAILY polyethylene glycol 3350 17 grams feeding tube DAILY pot,sodium citrate-citric acid 550-500-334 mg/5 mL mL PO potassium chloride mEq feeding tube .DAILY VIA G-TUBE potassium citrate-citric acid 1,100-334 mg/5 mL mL PO .DAILY VIA G-TUBE rufinamide mg feeding tube BID sennosides (senna) 10 mL feeding tube DAILY triamcinolone acetonide 0.1% topical TID PRN urinary bag (Christin Urinary Leg Bag) 4 bags per month per insurance- to be changed weekly HPI Comments Details: Wade is a pleasant male. He is a patient of Dr. Oleary. He seen for the following urologic conditions - neurogenic bladder Here for six-month suprapubic tube change Prior history of recurrent UTIs and CIC Has been doing very well Current medications include vitamin-C and methenamine Will give self start antibiotics Neurogenic bladder Suprapubic tube placed 02/12 Managed by mother for many years with [facility] Medical History (Updated 05/14/23 @ 10:22 by Ketan Dubose LPN) Jejunostomy tube present Gastrostomy tube in place Wheelchair dependent Weight loss Sleep apnea Seizure disorder Profound intellectual disability Pneumoperitoneum Neurogenic bladder Nephrolithiasis Microcephaly Ilya-Gastaut syndrome GERD (gastroesophageal reflux disease) Feeding problem Cortical blindness Constipation Cerebral palsy with level 5 of gross motor function classification system (GMFCS) Cerebral palsy Surgical History History of hip surgery History of testicular surgery History of Pina fundoplication Social History Are you a primary health care legal assistant to a significant other at home: No Patient Tobacco Use Status: Never used Tobacco Review of Systems Const Denies chills and Denies fever(s) Card Reports no additional complaints and Denies syncope Resp Denies cough GI Denies abdominal pain and Denies heartburn Reports as per HPI and Denies change in libido Neuro Denies syncope Psych Denies change in libido Endo Denies change in libido Physical Exam Const General: cooperative, healthy appearing, comfortable and no acute distress Orientation/consciousness: patient oriented x3 HEENT Face and sinus: Yes normal facial exam Mouth: moist mucous membranes Neck Neck: Yes normal visual inspection, Yes full ROM and Yes trachea midline Chest Chest palpation & inspection: normal inspection of the chest Resp Effort & Inspection: normal respiratory effort, able to speak in complete sentences and no respiratory distress GI Inspection: Yes normal to inspection Back/Spine/Pelvis Cervical Spine: normal cervical lordosis Thoracic/Lumbar Spine: thoracic and lumbar spine normal to inspection Skin General skin exam: no rashes or lesions noted Neuro General: patient oriented x3, gait normal, tone normal and moves all extremities Extrem General: Yes normal to inspection and Yes capillary refill normal Office Procedures Bladder/Catheter Procedure Details: pt presents to office for sp tube change and 6 month follow up with Dr. Gary- 18 fr gamal cath with 7.5 ml balloon replaced with flip valve and bag. pt tolerated exchange well. next change in 4 weeks 54720-[id number] of bladder tube Procedure code (CPT) selection complete Assessment & Plan Assessment & Plan (1) Recurrent UTI: Code(s): N39.0 - Urinary tract infection, site not specified Category: Medical (2) Neurogenic bladder: Code(s): N31.9 - Neuromuscular dysfunction of bladder, unspecified Category: Medical Plan Six-month follow-up with me Orders: Orders AMB Bladder/Catheter Procedure Today N31.9 - Neuromuscular dysfunction of bladder, unspecified Medications: New levofloxacin Crush and administer via G-tube. 250 mg PO DAILY 5 tabs 0RF 5 days N31.9 - Neuromuscular dysfunction of bladder, unspecified Refilled ascorbic acid (vitamin C) 1 g feeding tube DAILY 90 tabs 1RF 90 days N31.9 - Neuromuscular dysfunction of bladder, unspecified methenamine hippurate 1 g feeding tube DAILY 90 tabs 1RF 90 days N31.9 - Neuromuscular dysfunction of bladder, unspecified Patient Instructions: Imaging studies, laboratory and physical exam results were discussed and reviewed in detail. No major barriers to patient understanding were identified. An opportunity to ask questions regarding the treatment plan was provided. All questions were answered. The patient expressed understanding and agreement with the above treatment plan. The patient is aware they should contact our office by phone for worsening of their current condition or the appearance of new urologic symptoms. Compliance is encouraged with any medications and followup testing that is ordered. It is a privilege to participate in the urologic care of your patient. If you have any questions or concerns regarding treatment for the above conditions, or other urologic issues, please do not hesitate to contact me. The office telephone contact is [phone]. This note is constructed using voice recognition software. While every effort has been made to ensure accuracy consulting technical director errors may have been included. Yours sincerely, Dr Gilbert Gary MD, [facility] - Urology Providers of Expert, Compassionate Care for the Genitourinary System Coding Level of Care Code Est Pt Level 3 (92475) Diagnoses Recurrent UTI N39.0 Neurogenic bladder N31.9 CPT Codes Bladder/Catheter Procedure - CPT: 24822-Vmysjx of bladder tube ([id number])
== END 2023-09-18 09:29 | disposition home or self-care (01) ==
PROVIDERS: PCP Pediatrics; Visit Provider Urology
DX: N39.0 Urinary tract infection, site not specified (principal); N31.9 Neuromuscular dysfunction of bladder, unspecified; Z96.0 Presence of urogenital implants
CPT/HCPCS: 51705; 99213

== ENCOUNTER → 2023-09-18 08:39 | Outpatient (BNVA) | payer MEDICAID, SELFPAY | PROVIDERS: PCP Pediatrics; Visit Provider Urology | DX: N39.0 Urinary tract infection, site not specified (principal); N31.9 Neuromuscular dysfunction of bladder, unspecified | CPT/HCPCS: 51705; 99212 ==

== ENCOUNTER → 2023-10-16 08:51 | Outpatient (BNVA) | payer MEDICAID, SELFPAY | PROVIDERS: PCP Pediatrics; Visit Provider Urology | DX: N31.9 Neuromuscular dysfunction of bladder, unspecified (principal) | CPT/HCPCS: 51705 ==

== ENCOUNTER → 2023-11-13 08:46 | Outpatient (BNVA) | payer MEDICAID, SELFPAY | PROVIDERS: PCP Pediatrics; Visit Provider Urology | DX: N31.9 Neuromuscular dysfunction of bladder, unspecified (principal); Z46.6 Encounter for fitting and adjustment of urinary device | CPT/HCPCS: 51705 ==

== ENCOUNTER → 2023-12-10 10:43 | Outpatient (BNVA) | payer MEDICAID, SELFPAY | PROVIDERS: PCP Pediatrics; Visit Provider Urology | DX: N31.9 Neuromuscular dysfunction of bladder, unspecified (principal) | CPT/HCPCS: 51705 ==

== ENCOUNTER → 2024-01-05 10:10 | Outpatient (BNVA) | payer MEDICAID, SELFPAY | PROVIDERS: PCP Pediatrics; Visit Provider Urology | DX: N31.9 Neuromuscular dysfunction of bladder, unspecified (principal); Z46.6 Encounter for fitting and adjustment of urinary device; Z93.50 Unspecified cystostomy status | CPT/HCPCS: 51705 ==

== ENCOUNTER → 2024-01-29 08:55 | Outpatient (BNVA) | payer MEDICAID, SELFPAY | PROVIDERS: PCP Pediatrics | DX: Z43.5 Encounter for attention to cystostomy (principal); N31.9 Neuromuscular dysfunction of bladder, unspecified; N39.0 Urinary tract infection, site not specified | CPT/HCPCS: 51705 ==

== ENCOUNTER 2024-02-25 12:25 | Outpatient (AMB) | payer MEDICAID, SELFPAY ==
--- NOTE | 2024-02-25 13:30 | A.OFFVIS_ITS ---
Intake Visit Reasons: 6m follow up Intake Note: Patient is present for 6m F/U Urology Medication:methenamine,levofloxzcin, vitamin c Antibiotic Allergy:penicillin,sulfa,amoxicillin,BACTRIM Blood Thinner:none Flight Operations Engineer Required: No Allergies cefuroxime [From Ceftin] Allergy (Verified 02/25/24 13:32) Rash divalproex sodium [From Depakote] Allergy (Verified 02/25/24 13:32) Unknown Penicillins Allergy (Verified 02/25/24 13:32) Unknown phenytoin Allergy (Verified 02/25/24 13:32) Rash sulfamethoxazole [From Bactrim] Allergy (Verified 02/25/24 13:32) Unknown trimethoprim [From Bactrim] Allergy (Verified 02/25/24 13:32) Unknown levetiracetam [From Keppra] Adverse Reaction (Verified 02/25/24 13:32) behavior change Amoxicillin Allergy (Uncoded 02/25/24 13:32) Rash Phenobarbital Allergy (Uncoded 02/25/24 13:32) unknown Tegretol Allergy (Uncoded 02/25/24 13:32) Unknown Diamox Adverse Reaction (Uncoded 02/25/24 13:32) GI upset HPI Comments Details: Wade is a pleasant male. He is a patient of Dr. Oleary. He seen for the following urologic conditions - neurogenic bladder Here for six-month suprapubic tube change Prior history of recurrent UTIs and CIC Has been doing very well Current medications include vitamin-C and methenamine Will give self start antibiotics for mother Neurogenic bladder Suprapubic tube placed 02/12 Managed by mother for many years with [facility] Medical History (Updated 05/14/23 @ 10:22 by Ketan Dubose LPN) Jejunostomy tube present Gastrostomy tube in place Wheelchair dependent Weight loss Sleep apnea Seizure disorder Profound intellectual disability Pneumoperitoneum Neurogenic bladder Nephrolithiasis Microcephaly Ilya-Gastaut syndrome GERD (gastroesophageal reflux disease) Feeding problem Cortical blindness Constipation Cerebral palsy with level 5 of gross motor function classification system (GMFCS) Cerebral palsy Surgical History History of hip surgery History of testicular surgery History of Pina fundoplication Social History Are you a primary resident caregiver to a significant other at home: No Patient Tobacco Use Status: Never used Tobacco Review of Systems Const Denies chills and Denies fever(s) Card Reports no additional complaints and Denies syncope Resp Denies cough GI Denies abdominal pain and Denies heartburn Reports as per HPI and Denies change in libido Neuro Denies syncope Psych Denies change in libido Endo Denies change in libido Physical Exam Const General: cooperative, healthy appearing, comfortable and no acute distress Orientation/consciousness: patient oriented x3 HEENT Face and sinus: Yes normal facial exam Mouth: moist mucous membranes Neck Neck: Yes normal visual inspection, Yes full ROM and Yes trachea midline Chest Chest palpation & inspection: normal inspection of the chest Resp Effort & Inspection: normal respiratory effort, able to speak in complete sentences and no respiratory distress GI Inspection: Yes normal to inspection Back/Spine/Pelvis Cervical Spine: normal cervical lordosis Thoracic/Lumbar Spine: thoracic and lumbar spine normal to inspection Skin General skin exam: no rashes or lesions noted Neuro General: patient oriented x3, gait normal, tone normal and moves all extremities Extrem General: Yes normal to inspection and Yes capillary refill normal Office Procedures Bladder/Catheter Procedure Details: 20fr 7.5ml balloon exchanged for new 20fr lynch catheter 7.5ml balloon with bag. Patient tolerated exchange well. next change in 4 weeks 02919-Ecikta of bladder tube Procedure code (CPT) selection complete Assessment & Plan Assessment & Plan (1) Neurogenic bladder: Code(s): N31.9 - Neuromuscular dysfunction of bladder, unspecified Category: Medical (2) Recurrent UTI: Code(s): N39.0 - Urinary tract infection, site not specified Category: Medical Plan Six-month follow-up Continue catheter changes Orders: Orders AMB Bladder/Catheter Procedure 02/25/24 N31.9 - Neuromuscular dysfunction of bladder, unspecified Patient Instructions: Imaging studies, laboratory and physical exam results were discussed and reviewed in detail. No major barriers to patient understanding were identified. An opportunity to ask questions regarding the treatment plan was provided. All questions were answered. The patient expressed understanding and agreement with the above treatment plan. The patient is aware they should contact our office by phone for worsening of their current condition or the appearance of new urologic symptoms. Compliance is encouraged with any medications and followup testing that is ordered. It is a privilege to participate in the urologic care of your patient. If you have any questions or concerns regarding treatment for the above conditions, or other urologic issues, please do not hesitate to contact me. The office telephone contact is [phone]. This note is constructed using voice recognition software. While every effort irving s been made to ensure accuracy parts sales counterperson errors may have been included. Yours sincerely, Dr Gilbert Gary MD, [facility] - Urology Providers of Expert, Compassionate Care for the Genitourinary System Coding Level of Care Code Est Pt Level 3 (99473) Diagnoses Neurogenic bladder N31.9 Recurrent UTI N39.0 CPT Codes Bladder/Catheter Procedure - CPT: 88534-Wvvpgh of bladder tube ([id number])
== END 2024-02-25 14:08 | disposition home or self-care (01) ==
LOC: HO.HUSH 12:25
PROVIDERS: PCP Internal Medicine Geriatric Medicine; Visit Provider Urology
DX: Z43.5 Encounter for attention to cystostomy (principal)
CPT/HCPCS: 51705; 99213

== ENCOUNTER → 2024-02-25 12:25 | Outpatient (BNVA) | payer MEDICAID, SELFPAY | PROVIDERS: PCP Internal Medicine Geriatric Medicine; Visit Provider Urology | DX: N31.9 Neuromuscular dysfunction of bladder, unspecified (principal); N39.0 Urinary tract infection, site not specified; Z46.6 Encounter for fitting and adjustment of urinary device; Z93.50 Unspecified cystostomy status | CPT/HCPCS: 51705; 99212 ==

== ENCOUNTER → 2024-04-01 09:32 | Outpatient (BNVA) | payer MEDICAID, SELFPAY | PROVIDERS: PCP Internal Medicine Geriatric Medicine | DX: Z43.5 Encounter for attention to cystostomy (principal); N31.9 Neuromuscular dysfunction of bladder, unspecified | CPT/HCPCS: 51705 ==

== ENCOUNTER → 2024-04-26 09:35 | Outpatient (BNVA) | payer MEDICAID, SELFPAY | PROVIDERS: PCP Internal Medicine Geriatric Medicine; Visit Provider Urology | DX: N31.9 Neuromuscular dysfunction of bladder, unspecified (principal) | CPT/HCPCS: 51705 ==

== ENCOUNTER → 2024-05-30 09:01 | Outpatient (BNVA) | payer MEDICAID, SELFPAY | PROVIDERS: PCP Internal Medicine Geriatric Medicine; Visit Provider Urology | DX: N31.9 Neuromuscular dysfunction of bladder, unspecified (principal) | CPT/HCPCS: 51705 ==

== ENCOUNTER 2024-07-05 08:51 | Outpatient (AMB) | payer MEDICAID, SELFPAY ==
--- NOTE | 2024-07-05 09:04 | AM.OFFVISNUR ---
Intake Visit Reasons: 4w SPT change Allergies cefuroxime [From Ceftin] Allergy (Verified 02/25/24 13:32) Rash divalproex sodium [From Depakote] Allergy (Verified 02/25/24 13:32) Unknown Penicillins Allergy (Verified 02/25/24 13:32) Unknown phenytoin Allergy (Verified 02/25/24 13:32) Rash sulfamethoxazole [From Bactrim] Allergy (Verified 02/25/24 13:32) Unknown trimethoprim [From Bactrim] Allergy (Verified 02/25/24 13:32) Unknown levetiracetam [From Keppra] Adverse Reaction (Verified 02/25/24 13:32) behavior change Amoxicillin Allergy (Uncoded 02/25/24 13:32) Rash Phenobarbital Allergy (Uncoded 02/25/24 13:32) unknown Tegretol Allergy (Uncoded 02/25/24 13:32) Unknown Diamox Adverse Reaction (Uncoded 02/25/24 13:32) GI upset Office Procedures Bladder/Catheter Procedure Details: 20 fr gamal cath with 7.5 ml balloon replaced with flip valve and bag exchanged with 20fr 7.5ml balloon and bag, patient tolerated exchange well 34147-Ntafpv of bladder tube Procedure code (CPT) selection complete Assessment & Plan Assessment & Plan Orders: Orders AMB Bladder/Catheter Procedure Today N31.9 - Neuromuscular dysfunction of bladder, unspecified Coding CPT Codes Bladder/Catheter Procedure - CPT: 04558-Kwqshj of bladder tube ([id number])
--- OUTSIDE RECORDS SUMMARY | 2024-07-05 09:19 | XMS_ITS | Clinical Summary ---
Author Organization [facility] Address [address] [place] [address] Phone Care Team Providers Care Apron Cleaner Name Role Phone Unavailable Primary Care Provider Unavailabl e Medications budesonide (PULMICORT) 0.5 MG/2ML nebulizer solutionIndicati ons:Moderate persistent asthma without complication Take 2 mL (0.5 mg total) by nebulization 2 (two) times a day. Rinse mouth with water after use, do not swallow. 1 Package 5 8 Active Immunizations Immunization Administration Dates Next Due DTP 12/24/1995, 6,1994,08/14 DTaP 5 09/04/1998 H1N1 01/10/2009 HPV, Quadrivalent 08/31/2013,08/03/2012,06/03/19 13 Hep A, Adult 10/23/2014 Hep A, ped/adol 08/31/2013 Hep B, ped/adol 05/09/1995,1994 Hib (PRP-T) 09/21/1995, 6,1994,08/14 IPV 09/04/1998 Influenza Split 01/30/2012, 1,01/17/2010,01/04,12/23/2000,01/10/1999,12/14/1997 ,01/23/1997 Influenza, injectable, quadr ivalent, preservative free 12/20/2015,01/14/2014,12/31/2012 Influenza, injectable, trivalent 009,12/27/2007,12/08/2006,12/27,01/19/2004 MMR 09/04/1998,06/16/1995 Meningococcal Conj (Menactra) MCV4P 10/23/2014,0 06/10/2006 OPV 05/04/1995,1994,1994 Pneumococcal Polysaccharide 02/05/1999 Tdap 08/27/2009,02/23/2006 Varicella 07/06/2007,09/09/1995 Social History Tobacco Use Types Packs/Day Years Used Date Smoking Tobacco: Never Comments:Never smoker Sex and Gender Information Value Date Recorded Sex Assigned at Not on file Legal Sex Male 5:23 PM EDT Gender Identity Not on file Sexual Orientation Not on file Last Filed Vital Signs Vital Sign Reading Time Taken Comments Blood Pressure 100/78 05/26/2016 12:00 AM EST Pulse 95 08/30/2015 12:00 AM EDT Temperature 36.4 ??C (97.5 ??F) 05/19/2016 12:[address] Respiratory Rate - - Oxygen Saturation 94% 12/20/2015 12:00 AM EDT Inhaled Oxygen Concentration - - Weight 45.3 kg (99 lb 12.8 oz) 12/20/2015 12:00 AM EDT Height 121.9 cm (4') 11/11/2013 12:00 AM EDT Body Mass Index 30.45 11/11/2013 12:00 AM EDT Plan of Treatment Health Maintenance Due Date Last Done Comments Influenza Vaccines (#1) 2023 03/03/20, 01/04/2020, 01/27/2019, Additional history exists COVID-19 Vaccine ( season) 2023 03/14/2021, 06/19/2020, 05/22/2020 DTaP,Tdap,and Td Vaccines (9 - Td or Tdap) 06/19/2027 06/18/2017, 08/27/2009, 08/27/2009, Additional history exists Hepatitis B Vaccines Completed 05/09/1995, 1994, 1994 HIB Vaccines Completed 09/21/1995, 04/23, 1994, Additional history exists IPV Vaccines Completed 09/04/1998, 04/23, 1994, Additional history exists MMR Vaccines Completed 09/04/1998, 06/16/1995 Pneumococcal Vaccine Aged Out 02/05/1999 No long er eligible based on patient's age to complete this topic Varicella Vaccines Completed 07/06/2007, 09/09/1995 HPV Vaccines Completed 08/31/2013, 07/21, 06/02/2012 Hepatitis A Vaccines Aged Out 10/23/2014, 09/01/19 14 No longer eligible based on patient's age to complete this topic Meningococcal Vaccine Aged Out 10/23/2014, 007 No longer eligible based on patient's age to complete this topic Men B Vaccine Aged Out No longer elig ible based on patient's age to complete this topic
--- OUTSIDE RECORDS SUMMARY | 2024-07-05 09:19 | XMS_ITS | Encounter Summary ---
Author Organization [employer] Address [address] [place] [address] Care Team Providers Care Pulpwood Contractor Name Role Phone Name, Enzo MARTELL Primary Care Provider Reason for Visit * Reason Onset Date Comments Prior Authorization 06/10/2024 Encounter Details Date Type Department Care Team ([facility] st Contact Info) Description 06/10/2024 Refill [facility] [address] [place], [place] [id number] Name, MD Enzo [address] [place] [address] Social History Tobacco Use Types Packs/Day Years Used Date Smoking Tobacco: Never Smokeless Tobacco: Never Alcohol Use Standard Drinks/Week Comments Never 0 (1 standard drink = 0.6 oz pur e alcohol) Housing Stability Answer Date Recorded What is your housing situation today? I have isak gr 10/05/[address] you li ve. Do you have problems with any of the following? None of the above 10/05/2023 Food Insecurity Answer Date Recorded Within the past 12 months, y ou worried that your food would run out before you got money to buy more: Never True 10/05/2023 Within the past 12 months,th e food you bought just didn't last and you didn't have enough money to get more: Never True Transportation Answer Date Recorded In the past 12 months, has l ack of transportation kept you from medical appts, meetings, work or from getting things needed for daily living? No 10/05/2023 Utilities Answer Date Recorded In the past 12 months, has t he electric, gas, oil or water company threatened to shut off services in your home? No 10/05/2023 Internet Access Answer Date Recorded Internet Access Q1 Yes 11/23/2023 Internet Access Q2 Not on file 11/23/2023 Sex and Gender Information Value Date Recorded Sex Assigned at Male 07/15/2023 4:04 PM EDT Legal Sex Male 4:01 PM EDT Gender Identity Male 10/09/2023 10:06 AM EDT Sexual Orientation Straight 10/09/2023 10 :06 AM EDT documented as of this encounter Miscellaneous Notes * Addendum Note - Lea Bell RN - 07/01/2024 4:10 PM EDTAddended by: LEA BELL on: 07/01/2024 04:10 PM Modules accepted: Orders * Addendum Note - Lea Bell RN - 07/01/2024 3:44 PM EDTAddended by: LEA BELL on: 07/01/2024 03:44 PM Modules accepted: Orders * Telephone Encounter - Enzo Malone MD - 07/01/2024 1:46 PM EDT Send the alternative please * Telephone Encounter - Jodee Lee - 07/01/2024 1:31 PM EDT PA required for omeprazole (PriLOSEC) 2 mg/mL solution. Covered alternative per DUR: Omeprazole/sodium bicarbonate capsule, powder for oral suspension (Zegerid). Please advise if changing med or if wish to proceed with PA. Thank you * Telephone Encounter - Cristiane Gardiner - 06/10/2024 3:16 PM EDT Tc from pt's mom stating PA needed for omeprazole (PriLOSEC) 2 mg/mL solution documented in this encounter Plan of Treatment Upcoming Encounters Date Type Department Care Team (Late st Contact Info) Description 08/09/2024 4:00 PM EDT Office Visit [facility] [address] [place] [address] Name, MD Enzo [address] [place] [address] documented as of this encounter Visit Diagnoses Not on filedocumented in this encounter Care Teams Pulpwood Contractor Relationship Specialty Start Date End Date Name, MD Enzo [address] [place] [id number] PCP - General Internal Medicine 10/12/23 documented as of this encounter
--- OUTSIDE RECORDS SUMMARY | 2024-07-05 09:19 | XMS_ITS | Encounter Summary ---
Author Organization [facility] Address [address] [place] [address] Phone Care Team Providers Care Lead Architect Name Role Phone Miky Pandya MD Primary Care Provider [phone] Encounter Details Date Type Department Care Team (Late st Contact Info) Description 09/02/2012 Documentation EM Family Medicine [address] [place] [address] Family Medicine, Physician [address], [place] [phone] Social History Tobacco Use Types Packs/Day Years Used Date Smoking Tobacco: Never Assessed Sex and Gender Information Value Date Recorded Sex Assigned at Not on file Legal Sex Male 5:23 PM EDT Gender Identity Not on file Sexual Orientation Not on file documented as of this encounter Plan of Treatment Not on file documented as of this encounter Visit Diagnoses Not on filedocumented in this encounter Care Teams Lead Architect Relationship Specialty Start Date End Date Miky Pandya MD [address] [place] [address] [place] [address] PCP - General 10/31/16 08/21/22 documented as of this encounter
--- OUTSIDE RECORDS SUMMARY | 2024-07-05 09:19 | XMS_ITS | Encounter Summary ---
Author Organization [facility] Address [address] [place] [address] Phone Care Team Providers Care Bmw Sales Consultant Name Role Phone Miky Pandya MD Primary Care Provider [phone] Encounter Details Date Type Department Care Team (Late st Contact Info) Description 06/28/2014 Documentation EM Family Medicine [address] [place] [address] Family Medicine, Physician [address], [place] [phone] Social History Tobacco Use Types Packs/Day Years [...] on filedocumented in this encounter Care Teams Bmw Sales Consultant Relationship Specialty Start Date End Date Miky Pandya MD [address] [place] [address] [place] [address] PCP - General 10/31/16 08/21/22 documented as of this encounter
--- OUTSIDE RECORDS SUMMARY | 2024-07-05 09:19 | XMS_ITS | Encounter Summary ---
Author Organization [facility] Address [address] [place] [address] Phone Care Team Providers Care Mailroom Supervisor Name Role Phone Miky Pandya MD Primary Care Provider [phone] Encounter Details Date Type Department Care Team (Late st Contact Info) Description 10/02/2014 Documentation EM Family Medicine [address] [place] [address] Family Medicine, Physician [address] [place] [phone] Social History Tobacco Use Types Packs/Day Years [...] on filedocumented in this encounter Care Teams Mailroom Supervisor Relationship Specialty Start Date End Date Miky Pandya MD [address] [place] [address] [place] [address] PCP - General 10/31/16 08/21/22 documented as of this encounter
--- OUTSIDE RECORDS SUMMARY | 2024-07-05 09:19 | XMS_ITS | Encounter Summary ---
Author Organization [facility] Address [address] [place] [address] Phone Care Team Providers Care Automotive Service Professional Name Role Phone Miky Pandya MD Primary Care Provider [phone] Encounter Details Date Type Department Care Team (Late st Contact Info) Description 04/26/2012 Documentation EM Family Medicine [address] [place] [address] Family Medicine, Physician [address] [place], [place] [phone] Social History Tobacco Use Types Packs/Day Years [...] on filedocumented in this encounter Care Teams Automotive Service Professional Relationship Specialty Start Date End Date Miky Pandya MD [address] [place] [address] [place] [address] PCP - General 10/31/16 08/21/22 documented as of this encounter
--- OUTSIDE RECORDS SUMMARY | 2024-07-05 09:19 | XMS_ITS | Encounter Summary ---
Author Organization [facility] Address [address] [place] [address] Phone Care Team Providers Care Home School Liaison Officer Name Role Phone Miky Pandya MD Primary Care Provider [phone] Encounter Details Date Type Department Care Team (Late st Contact Info) Description 05/29/2009 Documentation EM Family Medicine [address] [place] [address] Family Medicine, Physician [address] [place], [place] [phone] Social History Tobacco Use Types Packs/Day Years [...] on filedocumented in this encounter Care Teams Home School Liaison Officer Relationship Specialty Start Date End Date Miky Pandya MD [address] [place] [address] [place] [address] PCP - General 10/31/16 08/21/22 documented as of this encounter
--- OUTSIDE RECORDS SUMMARY | 2024-07-05 09:19 | XMS_ITS | Clinical Summary ---
Author Organization [employer] Address [address] [facility] 7[address] [place] [address] Care Team Providers Care Military Equipment Specialist Name Role Phone Name, Enzo MRATELL Primary Care Provider [phone] Allergies Active Allergy Reactions Criticality Noted Date Comments Acetazolamide Other 01/14/2024 Amoxicillin Unknown,Rash Low 01/14/2024 Carbamazepine Unknown 01/14/2024 Cefuroxime Unknown,Rash Low 01/14/2024 Levetiracetam 01/14/2024 Other Reaction(s): behavior change Penicillin G 01/14/2024 Phenobarbital Rash Low 01/14/2024 Phenytoin Unknown,Rash Medium 01/14/2024 Sodium Acetate Unknown 01/14/2024 Sulfamethoxazole Unknown 01/14/2024 Sulfamethoxazole-Trimethoprim 2023 Trimethoprim Unknown 01/14/2024 Valproic Acid Anaphylaxis High 01/14/2024 Medications senna (Senokot) 8.8 MG/5ML syrup TAKE 10 ML VIA GTUBE DAILY IN THE MORNING 024 Active Banzel 400 MG tablet TAKE 4 TABLETS BY MOUTH TWICE DAILY 024 Active nitrofurantoin (Macrodantin) 50 MG capsule TAKE 1 CAPSULE VIA JTUBE DAILY. MAY MIX IN WATER Active Rocklatan 0.02-0.005 % solution INSTILL 1 DROP IN BOTH EYES AT NIGHT 022 Active methenamine hippurate (Hiprex) 1 g tablet TAKE 1 TABLET BY MOUTH VIA FEEDING TUBE DAILY Active lamoTRIgine (LaMICtal) 200 MG tablet TAKE 2 TABLETS VIA GIVE-TUBE TWICE DAILY 023 Active lamoTRIgine (LaMICtal) 25 MG tablet TAKE 2 TABLETS VIA GTUBE TWICE DAILY 023 Active ketoconazole (NIZOral) 2 % cream APPLY TO THE AFFECTED AREA TWICE DAILY NEEDED FOR FACIAL RASH Active glucagon (Baqsimi One Pack) 3 MG/DOSE nasal powder USE 1 SPRAY INTO ONE NOSTRIL ONCE NEEDED FOR BLOOD SUGAR LESS THAN 90; REPEAT NEEDED DIRECTED Active diazePAM 5 MG/5ML solution TAKE 4 ML VIA GTUBE THREE TIMES DAILY Active brimonidine (AlphaGAN) 0.2 % ophthalmic solution INSTILL 1 DROP THREE TIMES DAILY BOTH EYES 015 Active Ascorbic Acid (vitamin C) 1000 MG tablet TAKE 1 TABLET BY MOUTH VIA FEEDING TUBE DAILY Active M-PAP 160 MG/5ML liquid TAKE 15 ML VIA GTUBE EVERY 4 HOURS NEEDED FOR FEVER OR PAIN Active montelukast (Singulair) 10 MG tablet Take 1 tablet (10 mg) by mouth at bedtime. TAKE 1 TABLET BY MOUTH DAILY IN THE EVENING 90 tablet 3 024 2024 Active cloNIDine (Catapres) 0.1 MG tablet 3 tablets (0.3 mg) by Per J Tube route at bedtime. 135 tablet 1 Active baclofen (Lioresal) 5 MG tablet 3 tablets (15 mg) by Per J Tube route 2 times daily. 270 tablet 1 024 Active bisacodyl (Dulcolax) 10 MG suppository UNWRAP AND INSERT 1 SUPPOSITORY RECTALLY DAILY NEEDED FOR CONSTIPATION 12 suppository 1 Active mupirocin (Bactroban) 2 % ointment APPLY TOPICALLY TO GTUBE AREA THREE TIMES DAILY NEEDED FOR INFECTION 22 g 1 024 Active Pot & Sod Cit-Cit Ac (Tricitrates) 550-500-334 MG/5ML solutionIndica tions:Calculus of kidney TAKE 30 ML VIA GTUBE TWICE DAILY DIRECTED. MIX WITH WATER 1800 mL 3 025 Active polyethylene glycol, PEG, 3350 (Glycolax) 17 GM/SCOOP powder MIX 17 GM WITH WATER AND ADMINISTER VIA G-TUBE DAILY 510 g 3 025 Active omeprazole (PriLOSEC) 2 mg/mL solution 10 mL (20 mg) by Nasogastric route before breakfast. 300 mL Active albuterol (2.5 MG/3ML) 0.083% nebulizer solution USE 3 ML VIA NEBULIZER EVERY 4 TO 6 HOURS NEEDED FOR DIFFICULTY BREATHING 75 mL 1 025 Active budesonide (Pulmicort) 0.5 MG/2ML nebulizer solution Rinse mouth with water after use to reduce aftertaste and incidence of candidiasis. Do not swallow.USE 1 VIAL VIA NEBULIZER TWICE DAILY 60 mL 3 025 Active ipratropium (Atrovent) 0.02 % nebulizer solution USE 1 VIAL VIA NEBULIZER TWICE DAILY 150 mL 1 025 Active Potassium Chloride 20 MEQ/15ML (10%) solution TAKE 15 ML VIA JTUBE DAILY 450 mL 1 Active Omeprazole-Sod ium Bicarbonate 20-1680 MG pack 1 packet by Nasogastric route in the morning. 30 each Active Potassium Chloride 20 MEQ/15ML (10%) solution TAKE 15 ML VIA JTUBE DAILY 024 2024 Discontinued budesonide (Pulmicort) 0.5 MG/2ML nebulizer solution Rinse mouth with water after use to reduce aftertaste and incidence of candidiasis. Do not swallow.USE 1 VIAL VIA NEBULIZER TWICE DAILY 60 mL 3 024 2024 Discontinued(R eorder (will not trigger notification to Pharmacy)) omeprazole 2 mg/mL in sodium bicarbonate Take 10 mL (20 mg) by mouth Once per day. 100 mL 025 2024 Discontinued(O ther) albuterol (2.5 MG/3ML) 0.083% nebulizer solution USE 3 ML VIA NEBULIZER EVERY 4 TO 6 HOURS NEEDED FOR DIFFICULTY BREATHING 75 mL 1 025 2024 Discontinued ipratropium (Atrovent) 0.02 % nebulizer solution USE 1 VIAL VIA NEBULIZER TWICE DAILY 150 mL 025 2024 Discontinued(R eorder (will not trigger notification to Pharmacy)) omeprazole-sod ium bicarbonate (Zegerid) 40-1100 MG capsule Take 1 capsule by mouth before breakfast. Do not crush, chew, or split. 2024 Discontinued(E ntered in error) Omeprazole-Sod ium Bicarbonate 20-1680 MG pack Take by mouth. 2024 Discontinued(R eorder (will not trigger notification to Pharmacy)) Active Problems Problem Noted Date Diagnosed Date Preventative health care 06/10/2024 Assessment & Plan (06/10/2024 1:26 PM EDT): Discussed with patient re increase fresh fruit and vegetable intake. Patient is safe at home. Eye exam .- UTD, he should fu with Ophthalmology at least on 06/2025. Lipids/FBS.- to be ordered. Vaccinations.- Mother declined COVID immunization at this time, will order Hepatitis and MMR titers. Other Adult Immunizations are UTD. Dental visit.- Overdue, his mother will bring [facility] clearance form and will make an appointment for dental clinic. 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 Since patient needs G-tube medications I will prescribe Omeprazole solution. FU with PCP. 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 History of glaucoma as a child 10/12/2023 Cerebral palsy 10/12/2023 Assessment & Plan (06/10/2024 1:31 PM EDT): Patient is non verbal, wheelchair bound, has no pressure ulcers and is with family. He will continue going to day program. Discussed with his mother to bring guardianship information for his medical record. (Legal guardian is reportedly his father, Randy Chadwick). He is 100% dependent on all ADLs, continue home care program as well. Will write prescription for over head lift to facilitate transfers within the house for showering, bed time routines etc. Jejunostomy tube in situ 10/12/2023 Assessment & Plan (06/10/2024 1:33 PM EDT): Seems to be functioning well, no obstruction, peristomal lesions or infections. Suprapubic catheter 10/12/2023 Assessment & Plan (06/10/2024 1:35 PM EDT): Urine is clear and there is no peristomal erythema. Family will continue suprapubic catheter care and re consult PRN UTI symptoms. Constipation 10/12/2023 History of UTI 10/12/2023 DNR (do not resuscitate) 10/12/2023 Sleep apnea 10/12/2023 Acute urinary tract infection 05/20/2021 Pneumoperitoneum 08/23/2012 Encounters Date Type Department Care Team Description 06/13/2024 Refill [facility] [address] [place] [address] NameEnzo MD 06/10/2024 10:45 AM EDT Office Visit [facility] [address] [place] [address] Lois Fry MD Preventative health care (Primary Dx); Spastic quadriplegic cerebral palsy ([facility]/HCC); Gastroesophageal reflux disease, unspecified whether esophagitis present; Jejunostomy tube in situ (CMS/HCC); Wheelchair dependence; Suprapubic catheter ([facility]) 06/10/2024 Refill [facility] [address] [place] [address] Enzo Malone MD 06/10/2024 Refill [facility] [address] [place] [address] Enzo Malone MD 06/10/2024 Refill [facility] [address] [place] [address] Enzo Malone MD 06/10/2024 Travel 06/03/2024 Patient Outreach [facility] [address] [place] [address] Enzo Malone MD Pre-visit Planning ([facility] unable to reach LVM ) 06/03/2024 Population Health Risk Score [facility] () Department [address] [place] [id number] Provider, Population Health Generic 06/02/2024 Refill [facility] [address] [place] [address] Enzo Malone MD 05/24/2024 Telephone [facility] [address] [place] [phone] Enzo Malone MD Medication Question 05/17/2024 Telephone [facility] [address] [place] [address] Pravin Dhillon MA June recalls 05/16/2024 Refill [facility] [address] [place] [address] Enzo Malone MD 04/15/2024 Refill [facility] [address] [place] [address] Enzo Malone MD 04/12/2024 Telephone [facility] [address] [place] [phone] Enzo Malone MD Medication Question; FYI from Last 3 Months Immunizations Name Administration Dates Next Due DTP 12/24/1995, 6,1994,08/14 DTaP 12/24/1995, 6,1994,08/14 DTaP, 5 pertussis antigens 09/04/1998 HPV, Quadrivalent 08/31/2013, 4,08/03/2012,08/03,06/02/2012,06/02/2012 Hep A, Adult 10/23/2014,08/31/2013 Hep A, Unspecified 10/23/2014,08/31/2013 Hep A, ped/adol, 2 dose 08/31/2013 Hep B, Adolescent or Pediatric 05/09/1995,1994,1994 Hep B, Unspecified 05/09/1995,1994, 995 Hib (PRP-T) 09/21/1995, 6,1994,08/14 IPV 09/04/1998, 6,1994,08/14 Influenza Injectable Quadriv alant Preservative Free IIV4 MDCK 03/03/2021,04/05/2017 Influenza Whole 01/04/2020, 4,12/31/2012,01/29,11/19/2010,01/17/2010,12/14/2008 ,12/27/2007,12/08/2006,12/27/2004,12/22,01/04/2002,12/23/2000, 9,12/14/1997,01/23/1997 Influenza injectable quadriv alent preservative free 01/04/2020,12/20/2015,01/14/2014,12/31 Influenza, IIV3, injectable 01/29/2023,1 05/04/2020,01/27/2019,01/20,04/05/2017,12/20/2015,12/14/2008 ,12/27/2007,12/08/2006,01/29/2006,09/2004,01/19/2004 Influenza, Split (incl. gail fied surface antigen) 01/30/2012,11/19/2010,01/17/2010 Influenza, Unspecified 01/20/2018 Influenza, seasonal, injecta ble, preservative free 01/14/2024 MMR 09/04/1998,06/16/1995 Meningococcal ACWY, unspecified 10/23/2014,06/10 Meningococcal MCV4P ACYW-135 10/23/2014,06/11/19 07 Novel [id number], all formulations 01/10/2009 OPV, Trivalent 05/04/1995,1994,1994 Pneumococcal Conjugate PCV 20 01/14/2024 Pneumococcal Polysaccharide PPSV23 02/05/1999 TD (adult), 2 Lf tetanus tox oid, preservative free, adsorbed 08/27/2009 Td (adult), unspecified 08/27/2009,02/23/2006 Tdap 06/18/2017, 0,08/27/2009,02/23 Varicella 07/06/2007,07/06/2007,09/09/1995 Social History Tobacco Use Types Packs/Day Years Used Date Smoking Tobacco: Never Smokeless Tobacco: Never Tobacco Cessation:Counseling Given: Not Answered Alcohol Use Standard Drinks/Week Comments Never 0 [...] Orientation Straight 10/09/2023 10 :06 AM EDT Last Filed Vital Signs Vital Sign Reading Time Taken Comments Blood Pressure 114/78 06/10/2024 10:32 AM EDT Pulse 72 06/10/2024 10:32 AM EDT Temperature 36 ??C (96.8 ??F) 06/10/2024 10:32 AM EDT Respiratory Rate 18 01/14/2024 11:25 AM EDT Oxygen Saturation 85% 01/14/2024 11:25 AM EDT Inhaled Oxygen Concentration - - Weight - - Height - - Body Mass Index - - Plan of Treatment Upcoming Encounters Date Type Department Care Team (Late st Contact Info) Description 08/09/2024 4:00 PM EDT Office Visit [facility] [address] [place] [address] Name, MD Enzo [address] [place] [address] Health Maintenance Due Date Last Done Comments Depression Screening 1994 HIV Screening 1994 Alcohol/Substance Use Screening 2006 Family Planning (PISQ) 2009 Hepatitis C Screening 2012 COVID-19 Vaccine ( season) 2023 03/14/2021, 06/19/2020, 05/22/2020 SDOH Screening 10/04/2024 10/05/2023 Tobacco Screening 01/13/2025 01/14/2024 DTaP/Tdap/Td Vaccines (12 - Td or Tdap) 06/19/2027 06/18/2017, 08/27/2009, 08/27/2009, Additional history exists Zoster Vaccines (1 of 2) 2044 RSV Patients and Patients Aged 60 years or older (1 - 1-dose 75+ series) 2069 Hepatitis B Vaccines Completed 05/09/1995, 05/09/1995, 1994, Additional history exists HIB Vaccines Completed 09/21/1995, 04/23, 1994, Additional history exists IPV Vaccines Completed 09/04/1998, 04/23, 05/04/1995, Additional history exists HPV Vaccines Completed 08/31/2013, 08/21, 08/03/2012, Additional history exists Hepatitis A Vaccines Aged Out 10/23/2014, 10/23/2014, 08/31/2013, Additional history exists No longer eligible based on patient's age to complete this topic Meningococcal Vaccine Aged Out 10/23/2014 , 10/23/2014, 06/10/2006, Additional history exists No longer eligible based on patient's age to complete this topic Influenza Vaccine Completed 01/14/2024, , 01/29/2023, Additional history exists Pneumococcal Vaccine: Pediatrics (0 to 5 Years) and At-Risk Patients (6 to 49) Years) Completed 01/14/2024, 02/05/1999 RSV under 20 months Aged Out No longe r eligible based on patient's age to complete this topic Rotavirus Vaccines Aged Out No longer eligible based on patient's age to complete this topic Insurance [employer] Care Teams Military Equipment Specialist Relationship Specialty Start Date End Date Name, MD Enzo [address] [place], [place] [id number] PCP - General Internal Medicine 10/12/23
--- OUTSIDE RECORDS SUMMARY | 2024-07-05 09:19 | XMS_ITS | Encounter Summary ---
Author Organization [facility] Address [address] [place] [address] Phone Care Team Providers Care Technology Education Teacher Name Role Phone Miky Pandya MD Primary Care Provider [phone] Encounter Details Date Type Department Care Team (Late st Contact Info) Description 12/08/2013 Documentation EM Family Medicine [address] [place] [address] Family Medicine, Physician [address] [place] [phone] Social History Tobacco Use Types Packs/Day Years [...] on filedocumented in this encounter Care Teams Technology Education Teacher Relationship Specialty Start Date End Date Miky Pandya MD [address] [place] [address] [place] [address] PCP - General 10/31/16 08/21/22 documented as of this encounter
--- OUTSIDE RECORDS SUMMARY | 2024-07-05 09:19 | XMS_ITS | Encounter Summary ---
Author Organization [facility] Address [address] [place] [address] Phone Care Team Providers Care Coppersmith Helper Name Role Phone Miky Pandya MD Primary Care Provider [phone] Encounter Details Date Type Department Care Team (Late st Contact Info) Description 11/19/2012 Documentation EM Family Medicine [address] [place] [address] Family Medicine, Physician [address] [place], [place] [phone] Social History Tobacco Use Types Packs/Day Years [...] on filedocumented in this encounter Care Teams Coppersmith Helper Relationship Specialty Start Date End Date Miky Pandya MD [address] [place] [address] [place] [address] PCP - General 10/31/16 08/21/22 documented as of this encounter
--- OUTSIDE RECORDS SUMMARY | 2024-07-05 09:19 | XMS_ITS | Encounter Summary ---
Author Organization [facility] Address [address] [place] [address] Phone Care Team Providers Care Print Developer Name Role Phone Miky Pandya MD Primary Care Provider [phone] Encounter Details Date Type Department Care Team (Late st Contact Info) Description 10/13/2012 Documentation EM Family Medicine [address] [place] [address] Family Medicine, Physician [address] [place], [place] [phone] Social History Tobacco Use Types Packs/Day Years [...] on filedocumented in this encounter Care Teams Print Developer Relationship Specialty Start Date End Date Miky Pandya MD [address] [place] [address] [place] [address] PCP - General 10/31/16 08/21/22 documented as of this encounter
--- OUTSIDE RECORDS SUMMARY | 2024-07-05 09:19 | XMS_ITS | Encounter Summary ---
Author Organization [facility] Address [address] [place] [address] Phone Care Team Providers Care Special Effects Makeup Artist Name Role Phone Miky Pandya MD Primary Care Provider [phone] Encounter Details Date Type Department Care Team (Late st Contact Info) Description 10/13/2012 Documentation EM Family Medicine [address] [place] [address] Family Medicine, Physician [address] [place], [place] [phone] Social History Tobacco Use Types Packs/Day Years [...] on filedocumented in this encounter Care Teams Special Effects Makeup Artist Relationship Specialty Start Date End Date Miky Pandya MD [address] [place] [address] [place] [address] PCP - General 10/31/16 08/21/22 documented as of this encounter
--- OUTSIDE RECORDS SUMMARY | 2024-07-05 09:19 | XMS_ITS | Encounter Summary ---
Author Organization [facility] Address [address] [place] [address] Phone Care Team Providers Care Learning Engineer Name Role Phone Miky Pandya MD Primary Care Provider [phone] Encounter Details Date Type Department Care Team (Late st Contact Info) Description 03/29/2014 Documentation EM Family Medicine [address] [place] [address] Family Medicine, Physician [address] [place], [place] [phone] Social History Tobacco Use Types Packs/Day Years [...] on filedocumented in this encounter Care Teams Learning Engineer Relationship Specialty Start Date End Date Miky Pandya MD [address] [place] [address] [place] [address] PCP - General 10/31/16 08/21/22 documented as of this encounter
--- OUTSIDE RECORDS SUMMARY | 2024-07-05 09:19 | XMS_ITS | Encounter Summary ---
Author Organization [facility] Address [address] [place] [address] Phone Care Team Providers Care Motion Picture Camera Operator Name Role Phone Miky Pandya MD Primary Care Provider [phone] Encounter Details Date Type Department Care Team (Late st Contact Info) Description 05/23/2009 Documentation [facility] [address] [place] [address] Family Medicine, Physician [address] [place] [phone] Social History Tobacco Use Types Packs/Day Years [...] on filedocumented in this encounter Care Teams Motion Picture Camera Operator Relationship Specialty Start Date End Date Miky Pandya MD [address] [place] [address] [place] [address] PCP - General 10/31/16 08/21/22 documented as of this encounter
--- OUTSIDE RECORDS SUMMARY | 2024-07-05 09:19 | XMS_ITS | Encounter Summary ---
Author Organization [facility] Address [address] [place] [address] Phone Care Team Providers Care Channeler Insole Name Role Phone Miky Pandya MD Primary Care Provider [phone] Encounter Details Date Type Department Care Team (Late st Contact Info) Description 12/08/2013 Documentation EM Family Medicine [address] [place] [address] Family Medicine, Physician [address] [place] [phone] Social History Tobacco Use Types Packs/Day Years [...] on filedocumented in this encounter Care Teams Channeler Insole Relationship Specialty Start Date End Date Miky Pandya MD [address] [place] [address] [place] [address] PCP - General 10/31/16 08/21/22 documented as of this encounter
--- OUTSIDE RECORDS SUMMARY | 2024-07-05 09:19 | XMS_ITS | Encounter Summary ---
Author Organization [facility] Address [address] [place] [address] Phone Care Team Providers Care Hourly Associate Name Role Phone Miky Pandya MD Primary Care Provider [phone] Encounter Details Date Type Department Care Team (Late st Contact Info) Description 04/28/2012 Documentation EM Family Medicine [address] [place] [address] Family Medicine, Physician [address] [place] [phone] Social History Tobacco Use Types Packs/Day Years [...] on filedocumented in this encounter Care Teams Hourly Associate Relationship Specialty Start Date End Date Miky Pandya MD [address] [place] [address] [place] [address] PCP - General 10/31/16 08/21/22 documented as of this encounter
--- OUTSIDE RECORDS SUMMARY | 2024-07-05 09:19 | XMS_ITS | Encounter Summary ---
Author Organization [facility] Address [address] [place] [address] Phone Care Team Providers Care Glove Turner And Former Name Role Phone Miky Pandya MD Primary Care Provider [phone] Encounter Details Date Type Department Care Team (Late st Contact Info) Description 09/04/2014 Documentation EM Family Medicine [address] [place] [address] Family Medicine, Physician [address] [place] [phone] Social History Tobacco Use Types Packs/Day Years [...] on filedocumented in this encounter Care Teams Glove Turner And Former Relationship Specialty Start Date End Date Miky Pandya MD [address] [place] [address] [place] [address] PCP - General 10/31/16 08/21/22 documented as of this encounter
--- OUTSIDE RECORDS SUMMARY | 2024-07-05 09:19 | XMS_ITS | Encounter Summary ---
Author Organization [facility] Address [address] [place] [address] Phone Care Team Providers Care Claims Clerk Name Role Phone Miky Pandya MD Primary Care Provider [phone] Encounter Details Date Type Department Care Team (Late st Contact Info) Description 06/06/2011 Documentation EM Family Medicine [address] [place] [address] Family Medicine, Physician [address] [place], [place] [phone] Social History Tobacco Use Types Packs/Day Years [...] on filedocumented in this encounter Care Teams Claims Clerk Relationship Specialty Start Date End Date Miky Pandya MD [address] [place] [address] [place] [address] PCP - General 10/31/16 08/21/22 documented as of this encounter
--- OUTSIDE RECORDS SUMMARY | 2024-07-05 09:19 | XMS_ITS | Encounter Summary ---
Author Organization [facility] Address [address] [place] [address] Phone Care Team Providers Care Asbestos Coverer Name Role Phone Miky Pandya MD Primary Care Provider [phone] Reason for Visit * Reason Comments Med Refill Encounter Details Date Type Department Care Team (Late st Contact Info) Description 12/09/2016 Refill [facility] [place] [address] [place] [address] Miky Pandya MD [address] [place] [address] Social History Tobacco Use Types Packs/Day Years Used Date Smoking Tobacco: Never Comments:Never smoker Sex and Gender Information Value Date Recorded Sex Assigned at Not on file Legal Sex Male 5:23 PM EDT Gender Identity Not on file Sexual Orientation Not on file documented as of this encounter Miscellaneous Notes * Telephone Encounter - Francine Meier LPN - 12/09/2016 3:[address] Contreras- child now seeing adult provider, I spoke with mom and she will notify pharmacy to send request to rolando Guerrier documented in this encounter Plan of Treatment Not on file documented as of this encounter Visit Diagnoses Not on filedocumented in this encounter Care Teams Asbestos Coverer Relationship Specialty Start Date End Date Miky Pandya MD [address] [place] [address] PCP - General 10/31/16 08/21/22 documented as of this encounter
--- OUTSIDE RECORDS SUMMARY | 2024-07-05 09:19 | XMS_ITS | Encounter Summary ---
Author Organization [facility] Address [address] [place] [address] Phone Care Team Providers Care Supervisor Litharge Name Role Phone Miky Pandya MD Primary Care Provider [phone] Encounter Details Date Type Department Care Team (Late st Contact Info) Description 11/19/2012 Documentation [facility] [address] [place] [address] Family Medicine, Physician [address] [place], [place] [id number] Social History Tobacco Use Types Packs/Day Years [...] on filedocumented in this encounter Care Teams Supervisor Litharge Relationship Specialty Start Date End Date Miky Pandya MD [address] [place] [address] [place] [address] PCP - General 10/31/16 08/21/22 documented as of this encounter
--- OUTSIDE RECORDS SUMMARY | 2024-07-05 09:19 | XMS_ITS | Encounter Summary ---
Author Organization [facility] Address [address] [place] [address] Phone Care Team Providers Care Principle Industrial Hygienist Name Role Phone Miky Pandya MD Primary Care Provider [phone] Encounter Details Date Type Department Care Team (Late st Contact Info) Description 06/16/2014 Documentation [facility] Family Medicine [address] [place] [address] Family Medicine, Physician [address] [place], [place] [phone] Social History Tobacco Use Types Packs/Day Years [...] on filedocumented in this encounter Care Teams Principle Industrial Hygienist Relationship Specialty Start Date End Date Miky Pandya MD [address] [place] [address] [place] [address] PCP - General 10/31/16 08/21/22 documented as of this encounter
--- OUTSIDE RECORDS SUMMARY | 2024-07-05 09:19 | XMS_ITS | Encounter Summary ---
Author Organization [facility] Address [address] [place] [address] Phone Care Team Providers Care Belt Maker Helper Name Role Phone Miky Pandya MD Primary Care Provider [phone] Encounter Details Date Type Department Care Team (Late st Contact Info) Description 10/06/2012 Documentation EM Family Medicine [address] [place] [address] Family Medicine, Physician [address] [place], [place] [phone] Social History Tobacco Use Types Packs/Day Years [...] on filedocumented in this encounter Care Teams Belt Maker Helper Relationship Specialty Start Date End Date Miky Pandya MD [address] [place] [address] [place] [address] PCP - General 10/31/16 08/21/22 documented as of this encounter
--- OUTSIDE RECORDS SUMMARY | 2024-07-05 09:19 | XMS_ITS | Encounter Summary ---
Author Organization [facility] Address [address] [place] [address] Phone Care Team Providers Care Underwear Finisher Name Role Phone Miky Pandya MD Primary Care Provider [phone] Encounter Details Date Type Department Care Team (Late st Contact Info) Description 10/30/2009 Documentation EM Family Medicine [address] [place] [address] Family Medicine, Physician [address] [place], [place] [phone] Social History Tobacco Use Types Packs/Day Years [...] on filedocumented in this encounter Care Teams Underwear Finisher Relationship Specialty Start Date End Date Miky Pandya MD [address] [place] [address] [place] [address] PCP - General 10/31/16 08/21/22 documented as of this encounter
--- OUTSIDE RECORDS SUMMARY | 2024-07-05 09:19 | XMS_ITS | Encounter Summary ---
Author Organization [facility] Address [address] [place] [address] Phone Care Team Providers Care Bicycle Inspector Name Role Phone Miky Pandya MD Primary Care Provider [phone] Encounter Details Date Type Department Care Team (Late st Contact Info) Description 10/27/2012 Documentation [facility] Family [facility] [address] [place] [address] Family Medicine, Physician [address] [place], [place] [phone] Social History Tobacco Use Types Packs/Day Years [...] on filedocumented in this encounter Care Teams Bicycle Inspector Relationship Specialty Start Date End Date Miky Pandya MD [address] [place] [address] [place] [address] PCP - General 10/31/16 08/21/22 documented as of this encounter
--- OUTSIDE RECORDS SUMMARY | 2024-07-05 09:19 | XMS_ITS | Encounter Summary ---
Author Organization [facility] Address [address] [place] [address] Phone Care Team Providers Care Export Specialist Name Role Phone Miky Pandya MD Primary Care Provider [phone] Encounter Details Date Type Department Care Team (Late st Contact Info) Description 11/06/2016 Conversion Encounter [facility] [place] [address] [place] [address] Social History Tobacco Use Types Packs/Day Years [...] on filedocumented in this encounter Care Teams Export Specialist Relationship Specialty Start Date End Date Miky Pandya MD [address] [place] [address] PCP - General 10/31/16 08/21/22 documented as of this encounter
--- OUTSIDE RECORDS SUMMARY | 2024-07-05 09:20 | XMS_ITS | Encounter Summary ---
Author Organization [facility] Address [address] [place] [address] Phone Care Team Providers Care Senior Interaction Designer Name Role Phone Miky Pandya MD Primary Care Provider [phone] Encounter Details Date Type Department Care Team (Late st Contact Info) Description 12/08/2013 Documentation [facility] Family [facility] [address] [place] [address] Family Medicine, Physician [address] [place], [place] [phone] Social History Tobacco Use Types Packs/Day Years [...] on filedocumented in this encounter Care Teams Senior Interaction Designer Relationship Specialty Start Date End Date Miky Pandya MD [address] [place] [address] [place] [address] PCP - General 10/31/16 08/21/22 documented as of this encounter
--- OUTSIDE RECORDS SUMMARY | 2024-07-05 09:20 | XMS_ITS | Encounter Summary ---
Author Organization [facility] Address [address] [place] [address] Phone Care Team Providers Care Bus Van Driver Name Role Phone Miky Pandya MD Primary Care Provider [phone] Encounter Details Date Type Department Care Team (Late st Contact Info) Description 12/06/2015 Documentation EM Family [facility] [address] [place] [address] Family Medicine, Physician [address] [place], [place] [phone] Social History Tobacco Use Types Packs/Day Years [...] on filedocumented in this encounter Care Teams Bus Van Driver Relationship Specialty Start Date End Date Miky Pandya MD [address] [place] [address] [place] [address] PCP - General 10/31/16 08/21/22 documented as of this encounter
--- OUTSIDE RECORDS SUMMARY | 2024-07-05 09:20 | XMS_ITS | Encounter Summary ---
Author Organization [facility] Address [address] [place] [address] Phone Care Team Providers Care Vice President Research Name Role Phone Miky Pandya MD Primary Care Provider [phone] Encounter Details Date Type Department Care Team (Late st Contact Info) Description 12/06/2015 Documentation [facility] [address] [place] [address] Family Medicine, Physician [address] [place], [place] [phone] Social History Tobacco Use Types Packs/Day Years [...] on filedocumented in this encounter Care Teams Vice President Research Relationship Specialty Start Date End Date Miky Pandya MD [address] [place] [address] [place] [address] PCP - General 10/31/16 08/21/22 documented as of this encounter
--- OUTSIDE RECORDS SUMMARY | 2024-07-05 09:20 | XMS_ITS | Encounter Summary ---
Author Organization [facility] Address [address] [place] [address] Phone Care Team Providers Care Clerk Carrier Name Role Phone Miky Pandya MD Primary Care Provider [phone] Encounter Details Date Type Department Care Team (Late st Contact Info) Description 12/08/2013 Documentation EM Family [facility] [address] [place] [address] Family Medicine, Physician [address] [place], [place] [phone] Social History Tobacco Use Types Packs/Day Years [...] on filedocumented in this encounter Care Teams Clerk Carrier Relationship Specialty Start Date End Date Miky Pandya MD [address] [place] [address] [place] [address] PCP - General 10/31/16 08/21/22 documented as of this encounter
--- OUTSIDE RECORDS SUMMARY | 2024-07-05 09:20 | XMS_ITS | Encounter Summary ---
Author Organization [facility] Address [address] [place] [address] Phone Care Team Providers Care Operations Representative Name Role Phone Miky Pandya MD Primary Care Provider [phone] Encounter Details Date Type Department Care Team (Late st Contact Info) Description 05/16/2016 Documentation EM Family Medicine [address] [place] [address] Family Medicine, Physician [address] [place], [place] [phone] Social History Tobacco Use Types Packs/Day Years [...] on filedocumented in this encounter Care Teams Operations Representative Relationship Specialty Start Date End Date Miky Pandya MD [address] [place] [address] [place] [address] PCP - General 10/31/16 08/21/22 documented as of this encounter
--- OUTSIDE RECORDS SUMMARY | 2024-07-05 09:20 | XMS_ITS | Encounter Summary ---
Author Organization [facility] Address [address] [place] [address] Phone Care Team Providers Care Campus Recruiting Coordinator Name Role Phone Miky Pandya MD Primary Care Provider [phone] Encounter Details Date Type Department Care Team (Late st Contact Info) Description 12/06/2015 Documentation EM Family [facility] [address] [place] [address] Family Medicine, Physician [address] [place], [place] [phone] Social History Tobacco Use Types Packs/Day Years [...] on filedocumented in this encounter Care Teams Campus Recruiting Coordinator Relationship Specialty Start Date End Date Miky Pandya MD [address] [place] [address] [place] [address] PCP - General 10/31/16 08/21/22 documented as of this encounter
--- OUTSIDE RECORDS SUMMARY | 2024-07-05 09:20 | XMS_ITS | Encounter Summary ---
Author Organization [facility] Address [address] [place] [address] Phone Care Team Providers Care Web Services Developer Name Role Phone Miky Pandya MD Primary Care Provider [phone] Encounter Details Date Type Department Care Team (Late st Contact Info) Description 12/06/2015 Documentation EM Family Medicine [address] [place] [address] Family Medicine, Physician [address] [place], [place] [phone] Social History Tobacco Use Types Packs/Day Years [...] on filedocumented in this encounter Care Teams Web Services Developer Relationship Specialty Start Date End Date Miky Pandya MD [address] [place] [address] [place] [address] PCP - General 10/31/16 08/21/22 documented as of this encounter
--- OUTSIDE RECORDS SUMMARY | 2024-07-05 09:20 | XMS_ITS | Encounter Summary ---
Author Organization [facility] Address [address] [place] [address] Phone Care Team Providers Care Underground Mining Section Foreman Name Role Phone Miky Pandya MD Primary Care Provider [phone] Encounter Details Date Type Department Care Team (Late st Contact Info) Description 08/10/2009 Documentation EM Family Medicine [address] [place] [address] Family Medicine, Physician [address] [place], [place] [phone] Social History Tobacco Use Types Packs/Day Years [...] on filedocumented in this encounter Care Teams Underground Mining Section Foreman Relationship Specialty Start Date End Date Miky Pandya MD [address] [place] [address] [place] [address] PCP - General 10/31/16 08/21/22 documented as of this encounter
--- OUTSIDE RECORDS SUMMARY | 2024-07-05 09:20 | XMS_ITS | Encounter Summary ---
Author Organization [facility] Address [address] [place] [address] Phone Care Team Providers Care Executive Wellness Programs Director Name Role Phone Miky Pandya MD Primary Care Provider [phone] Encounter Details Date Type Department Care Team (Late st Contact Info) Description 05/16/2016 Documentation EM Family Medicine [address] [place] [address] Family Medicine, Physician [address] [place], [place] [phone] Social History Tobacco Use Types Packs/Day Years [...] on filedocumented in this encounter Care Teams Executive Wellness Programs Director Relationship Specialty Start Date End Date Miky Pandya MD [address] [place] [address] [place] [address] PCP - General 10/31/16 08/21/22 documented as of this encounter
--- OUTSIDE RECORDS SUMMARY | 2024-07-05 09:20 | XMS_ITS | Encounter Summary ---
Author Organization [facility] Address [address] [place] [address] Phone Care Team Providers Care Non Cdl Driver Name Role Phone Miky Pandya MD Primary Care Provider [phone] Encounter Details Date Type Department Care Team (Late st Contact Info) Description 12/06/2015 Documentation EM Family Medicine [address] [place] [address] Family Medicine, Physician [address] [place], [place] [phone] Social History Tobacco Use Types Packs/Day Years [...] on filedocumented in this encounter Care Teams Non Cdl Driver Relationship Specialty Start Date End Date Miky Pandya MD [address] [place] [address] [place] [address] PCP - General 10/31/16 08/21/22 documented as of this encounter
--- OUTSIDE RECORDS SUMMARY | 2024-07-05 09:20 | XMS_ITS | Encounter Summary ---
Author Organization [facility] Address [address] [place] [address] Phone Care Team Providers Care Staffing Branch Manager Name Role Phone Miky Pandya MD Primary Care Provider [phone] Encounter Details Date Type Department Care Team (Late st Contact Info) Description 04/08/2016 Documentation EM Family Medicine [address] [place] [address] Family Medicine, Physician [address] [place], [place] [phone] Social History Tobacco Use Types Packs/Day Years [...] on filedocumented in this encounter Care Teams Staffing Branch Manager Relationship Specialty Start Date End Date Miky Pandya MD [address] [place] [address] [place] [address] PCP - General 10/31/16 08/21/22 documented as of this encounter
--- OUTSIDE RECORDS SUMMARY | 2024-07-05 09:20 | XMS_ITS | Encounter Summary ---
Author Organization [facility] Address [address] [place] [address] Phone Care Team Providers Care Grain Mill Worker Name Role Phone Miky Pnadya MD Primary Care Provider [phone] Encounter Details Date Type Department Care Team (Late st Contact Info) Description 12/08/2013 Documentation EM Family Medicine [address] [place] [address] Family Medicine, Physician [address] [place], [place] [phone] Social History Tobacco Use Types Packs/Day Years [...] on filedocumented in this encounter Care Teams Grain Mill Worker Relationship Specialty Start Date End Date Miky Pandya MD [address] [place] [address] [place] [address] PCP - General 10/31/16 08/21/22 documented as of this encounter
--- OUTSIDE RECORDS SUMMARY | 2024-07-05 09:20 | XMS_ITS | Encounter Summary ---
Author Organization [facility] Address [address] [place] [address] Phone Care Team Providers Care Senior Qa Tester Name Role Phone Miky Pandya MD Primary Care Provider [phone] Encounter Details Date Type Department Care Team (Late st Contact Info) Description 01/16/2012 Documentation EM Family Medicine [address] [place] [address] Family Medicine, Physician [address] [place], [place] [phone] Social History Tobacco Use Types Packs/Day Years [...] filedocumented in this encounter Care Teams Senior Qa Tester Relationship Specialty Start Date End Date Miky Pandya MD [address] [place] [address] [place] [address] PCP - General 10/31/16 08/21/22 documented as of this encounter
--- OUTSIDE RECORDS SUMMARY | 2024-07-05 09:20 | XMS_ITS | Encounter Summary ---
Author Organization [facility] Address [address] [place] [address] Phone Care Team Providers Care Float Phlebotomist Name Role Phone Miky Pandya MD Primary Care Provider [phone] Encounter Details Date Type Department Care Team (Late st Contact Info) Description 08/10/2009 Documentation EM Family Medicine [address] [place] [address] Family Medicine, Physician [address] [place], [place] [phone] Social History Tobacco Use Types Packs/Day Years [...] on filedocumented in this encounter Care Teams Float Phlebotomist Relationship Specialty Start Date End Date Miky Pandya MD [address] [place] [address] [place] [address] PCP - General 10/31/16 08/21/22 documented as of this encounter
--- OUTSIDE RECORDS SUMMARY | 2024-07-05 09:20 | XMS_ITS | Encounter Summary ---
Author Organization [facility] Address [address] [place] [address] Phone Care Team Providers Care Tractor Driver Teamster Name Role Phone Miky Pandya MD Primary Care Provider [phone] Encounter Details Date Type Department Care Team (Late st Contact Info) Description 12/06/2015 Documentation EM Family Medicine [address] [place] [address] Family Medicine, Physician [address] [place], [place] [phone] Social History Tobacco Use Types Packs/Day Years [...] on filedocumented in this encounter Care Teams Tractor Driver Teamster Relationship Specialty Start Date End Date Miky Pandya MD [address] [place] [address] [place] [address] PCP - General 10/31/16 08/21/22 documented as of this encounter
--- OUTSIDE RECORDS SUMMARY | 2024-07-05 09:20 | XMS_ITS | Encounter Summary ---
Author Organization [facility] Address [address] [place] [address] Phone Care Team Providers Care National Park Ranger Name Role Phone Miky Pandya MD Primary Care Provider [phone] Encounter Details Date Type Department Care Team (Late st Contact Info) Description 05/16/2016 Documentation EM Family Medicine [address] [place] [address] Family Medicine, Physician [address] [place], [place] [phone] Social History Tobacco Use Types Packs/Day Years [...] on filedocumented in this encounter Care Teams National Park Ranger Relationship Specialty Start Date End Date Miky Pandya MD [address] [place] [address] [place] [address] PCP - General 10/31/16 08/21/22 documented as of this encounter
--- OUTSIDE RECORDS SUMMARY | 2024-07-05 09:20 | XMS_ITS | Encounter Summary ---
Author Organization [facility] Address [address] [place] [address] Phone Care Team Providers Care Money Room Supervisor Name Role Phone Miky Pandya MD Primary Care Provider [phone] Encounter Details Date Type Department Care Team (Late st Contact Info) Description 12/06/2015 Documentation EM Family Medicine [address] [place] [address] Family Medicine, Physician [address] [place], [place] [phone] Social History Tobacco Use Types Packs/Day Years [...] on filedocumented in this encounter Care Teams Money Room Supervisor Relationship Specialty Start Date End Date Miky Pandya MD [address] [place] [address] [place] [address] PCP - General 10/31/16 08/21/22 documented as of this encounter
--- OUTSIDE RECORDS SUMMARY | 2024-07-05 09:20 | XMS_ITS | Encounter Summary ---
Author Organization [facility] Address [address] [place] [address] Phone Care Team Providers Care Addressing Machine Operator Name Role Phone Miky Pandya MD Primary Care Provider [phone] Encounter Details Date Type Department Care Team (Late st Contact Info) Description 12/06/2015 Documentation EM Family Medicine [address] [place] [address] Family Medicine, Physician [address] [place], [place] [phone] Social History Tobacco Use Types Packs/Day Years [...] on filedocumented in this encounter Care Teams Addressing Machine Operator Relationship Specialty Start Date End Date Miky Pandya MD [address] [place] [address] [place] [address] PCP - General 10/31/16 08/21/22 documented as of this encounter
--- OUTSIDE RECORDS SUMMARY | 2024-07-05 09:20 | XMS_ITS | Encounter Summary ---
Author Organization [facility] Address [address] [place] [address] Phone Care Team Providers Care Business Instructor Name Role Phone Miky Pandya MD Primary Care Provider [phone] Encounter Details Date Type Department Care Team (Late st Contact Info) Description 12/06/2015 Documentation EM Family Medicine [address] [place] [address] Family Medicine, Physician [address] [place], [place] [phone] Social History Tobacco Use Types Packs/Day Years [...] on filedocumented in this encounter Care Teams Business Instructor Relationship Specialty Start Date End Date Miky Pandya MD [address] [place] [address] [place] [address] PCP - General 10/31/16 08/21/22 documented as of this encounter
--- OUTSIDE RECORDS SUMMARY | 2024-07-05 09:20 | XMS_ITS | Encounter Summary ---
Author Organization [facility] Address [address] [place] [address] Phone Care Team Providers Care Dental Surgeon Name Role Phone Miky Pandya MD Primary Care Provider [phone] Encounter Details Date Type Department Care Team (Late st Contact Info) Description 08/02/2009 Documentation EM Family Medicine [address] [place] [address] Family Medicine, Physician [address] [place], [place] [phone] Social History Tobacco Use Types Packs/Day Years [...] on filedocumented in this encounter Care Teams Dental Surgeon Relationship Specialty Start Date End Date Miky Pandya MD [address] [place] [address] [place] [address] PCP - General 10/31/16 08/21/22 documented as of this encounter
--- OUTSIDE RECORDS SUMMARY | 2024-07-05 09:20 | XMS_ITS | Encounter Summary ---
Author Organization [facility] Address [address] [place] [address] Phone Care Team Providers Care Resident Hall Director Name Role Phone Miky Pandya MD Primary Care Provider [phone] Encounter Details Date Type Department Care Team (Late st Contact Info) Description 12/06/2015 Documentation EM Family Medicine [address] [place] [address] Family Medicine, Physician [address] [place], [place] [phone] Social History Tobacco Use Types Packs/Day Years [...] on filedocumented in this encounter Care Teams Resident Hall Director Relationship Specialty Start Date End Date Miky Pandya MD [address] [place] [address] [place] [address] PCP - General 10/31/16 08/21/22 documented as of this encounter
--- OUTSIDE RECORDS SUMMARY | 2024-07-05 09:20 | XMS_ITS | Encounter Summary ---
Author Organization [facility] Address [address] [place] [address] Phone Care Team Providers Care Project Construction Manager Name Role Phone Miky Pandya MD Primary Care Provider [phone] Encounter Details Date Type Department Care Team (Late st Contact Info) Description 12/06/2015 Documentation EM Family Medicine [address] [place] [address] Family Medicine, Physician [address] [place] [place], [place] [id number] Social History Tobacco Use Types Packs/Day Years [...] on filedocumented in this encounter Care Teams Project Construction Manager Relationship Specialty Start Date End Date Miky Pandya MD [address] [place] [address] [place] [address] PCP - General 10/31/16 08/21/22 documented as of this encounter
--- OUTSIDE RECORDS SUMMARY | 2024-07-05 09:20 | XMS_ITS | Encounter Summary ---
Author Organization [facility] Address [address] [place] [address] Phone Care Team Providers Care Energy Analyst Name Role Phone Miky Pandya MD Primary Care Provider [phone] Encounter Details Date Type Department Care Team (Late st Contact Info) Description 12/06/2015 Documentation EM Family Medicine [address] [place] [address] Family Medicine, Physician [address] [place], [place] [id number] Social History Tobacco Use Types Packs/Day Years [...] on filedocumented in this encounter Care Teams Energy Analyst Relationship Specialty Start Date End Date Miky Pandya MD [address] [place] [address] [place] [address] PCP - General 10/31/16 08/21/22 documented as of this encounter
--- OUTSIDE RECORDS SUMMARY | 2024-07-05 09:20 | XMS_ITS | Encounter Summary ---
Author Organization [facility] Address [address] [place] [address] Phone Care Team Providers Care Retail Commission Sales Associate Name Role Phone iMky Pandya MD Primary Care Provider [phone] Encounter Details Date Type Department Care Team (Late st Contact Info) Description 04/22/2013 Documentation EM Family Medicine [address] [place] [address] Family Medicine, Physician [address] [place], [place] [phone] Social History Tobacco Use Types Packs/Day Years [...] on filedocumented in this encounter Care Teams Retail Commission Sales Associate Relationship Specialty Start Date End Date Miky Pandya MD [address] [place] [address] [place] [address] PCP - General 10/31/16 08/21/22 documented as of this encounter
--- OUTSIDE RECORDS SUMMARY | 2024-07-05 09:20 | XMS_ITS | Encounter Summary ---
Author Organization [facility] Address [address] [place] [address] Phone Care Team Providers Care Location And Measurement Technician Name Role Phone Miky Pandya MD Primary Care Provider [phone] Encounter Details Date Type Department Care Team (Late st Contact Info) Description 01/19/2013 Documentation EM Family Medicine [address] [place] [address] Family Medicine, Physician [address] [place], [place] [phone] Social History Tobacco Use Types Packs/Day Years [...] on filedocumented in this encounter Care Teams Location And Measurement Technician Relationship Specialty Start Date End Date Miky Pandya MD [address] [place] [address] [place] [address] PCP - General 10/31/16 08/21/22 documented as of this encounter
--- OUTSIDE RECORDS SUMMARY | 2024-07-05 09:20 | XMS_ITS | Encounter Summary ---
Author Organization [facility] Address [address] [place] [address] Phone Care Team Providers Care Traffic Maintenance Officer Name Role Phone Miky Pandya MD Primary Care Provider [phone] Encounter Details Date Type Department Care Team (Late st Contact Info) Description 12/06/2015 Documentation EM Family Medicine [address] [place] [address] Family Medicine, Physician [address] [place], [place] [phone] Social History Tobacco Use Types Packs/Day Years [...] on filedocumented in this encounter Care Teams Traffic Maintenance Officer Relationship Specialty Start Date End Date Miky Pandya MD [address] [place] [address] [place] [address] PCP - General 10/31/16 08/21/22 documented as of this encounter
== END 2024-07-05 09:11 | disposition home or self-care (01) ==
LOC: HO.HUSH 08:52
PROVIDERS: PCP Internal Medicine Geriatric Medicine; Visit Provider Urology
DX: N31.9 Neuromuscular dysfunction of bladder, unspecified (principal)
CPT/HCPCS: 51102

== ENCOUNTER → 2024-08-02 12:41 | Outpatient (BNVA) | payer MEDICAID, SELFPAY | PROVIDERS: PCP Internal Medicine Geriatric Medicine; Visit Provider Urology | DX: N31.9 Neuromuscular dysfunction of bladder, unspecified (principal) | CPT/HCPCS: 51705 ==

== ENCOUNTER 2024-08-26 10:50 | Outpatient (AMB) | payer MEDICAID, SELFPAY ==
--- NOTE | 2024-08-26 11:07 | A.OFFVIS_ITS ---
Intake Visit Reasons: 6 month follow up Intake Note: Patient is present for 6m F/U Urology Medication:methenamine,levofloxzcin, vitamin c Antibiotic Allergy:penicillin,sulfa,amoxicillin,BACTRIM Blood Thinner:none Airfreight Loading Supervisor Required: Yes Airfreight Loading Supervisor Services: Airfreight Loading Supervisor Present Allergies cefuroxime [From Ceftin] Allergy (Verified 08/26/24 11:07) Rash divalproex sodium [From Depakote] Allergy (Verified 08/26/24 11:07) Unknown Penicillins Allergy (Verified 08/26/24 11:07) Unknown phenytoin Allergy (Verified 08/26/24 11:07) Rash sulfamethoxazole [From Bactrim] Allergy (Verified 08/26/24 11:07) Unknown trimethoprim [From Bactrim] Allergy (Verified 08/26/24 11:07) Unknown levetiracetam [From Keppra] Adverse Reaction (Verified 08/26/24 11:07) behavior change Amoxicillin Allergy (Uncoded 02/25/24 13:32) Rash Phenobarbital Allergy (Uncoded 02/25/24 13:32) unknown Tegretol Allergy (Uncoded 02/25/24 13:32) Unknown Diamox Adverse Reaction (Uncoded 02/25/24 13:32) GI upset HPI Comments Details: Wade is a pleasant male. He is a patient of Dr. Oleary. He seen for the following urologic conditions - neurogenic bladder Here for six-month follow-up Prior history of recurrent UTIs and CIC Has been doing very well Still with UTI monthly Concern about bladder drainage Should cap catheter for an hour and a half to try to allow bladder to recover Current medications include vitamin-C and methenamine Neurogenic bladder Suprapubic tube placed 02/12 Managed by mother for many years with [facility] Medical History Jejunostomy tube present Gastrostomy tube in place Wheelchair dependent Weight loss Sleep apnea Seizure disorder Profound intellectual disability Pneumoperitoneum Neurogenic bladder Nephrolithiasis Microcephaly Ilya-Gastaut syndrome GERD (gastroesophageal reflux disease) Feeding problem Cortical blindness Constipation Cerebral palsy with level 5 of gross motor function classification system (GMFCS) Cerebral palsy Surgical History History of hip surgery History of testicular surgery History of Pina fundoplication Social History Are you a primary director critical care to a significant other at home: No Patient Tobacco Use Status: Never used Tobacco Review of Systems Const Denies chills and Denies fever(s) Card Reports no additional complaints and Denies syncope Resp Denies cough GI Denies abdominal pain and Denies heartburn Reports as per HPI and Denies change in libido Neuro Denies syncope Psych Denies change in libido Endo Denies change in libido Physical Exam Const General: cooperative, healthy appearing, comfortable and no acute distress Orientation/consciousness: patient oriented x3 HEENT Face and sinus: Yes normal facial exam Mouth: moist mucous membranes Neck Neck: Yes normal visual inspection, Yes full ROM and Yes trachea midline Chest Chest palpation & inspection: normal inspection of the chest Resp Effort & Inspection: normal respiratory effort, able to speak in complete sentences and no respiratory distress GI Inspection: Yes normal to inspection Back/Spine/Pelvis Cervical Spine: normal cervical lordosis Thoracic/Lumbar Spine: thoracic and lumbar spine normal to inspection Skin General skin exam: no rashes or lesions noted Neuro General: patient oriented x3, gait normal, tone normal and moves all extremities Extrem General: Yes normal to inspection and Yes capillary refill normal Assessment & Plan Assessment & Plan (1) Neurogenic bladder: Code(s): N31.9 - Neuromuscular dysfunction of bladder, unspecified Category: Medical (2) Recurrent nephrolithiasis: Code(s): N20.0 - Calculus of kidney Category: Medical Plan Six-month follow-up Patient Instructions: This note is constructed using voice recognition software. While every effort has been made to ensure accuracy stock parts fabricator errors may have been included. Imaging studies, laboratory and physical exam results were discussed and reviewed in detail. No major barriers to patient understanding were identified. An opportunity to ask questions regarding the treatment plan was provided. All questions were answered. The patient expressed understanding and agreement with the above treatment plan. The patient is aware they should contact our office by phone for worsening of their current condition or the appearance of new urologic symptoms. Compliance is encouraged with any medications and followup testing that is ordered. It is a privilege to participate in the urologic care of your patient. If you have any questions or concerns regarding treatment for the above conditions, or other urologic issues, please do not hesitate to contact me. The office telephone contact is [phone]. Sincerely, Dr Gilbert Gary MD, [facility] - Urology Compassionate Specialist Care for the Genitourinary System Coding Level of Care Code Est Pt Level 3 (69914) Complex EM visit Add On G2211 Diagnoses Neurogenic bladder N31.9 Recurrent nephrolithiasis N20.0
--- OUTSIDE RECORDS SUMMARY | 2024-08-26 11:45 | XMS_ITS | Encounter Summary ---
Author Organization [employer] Address [address] [employer] [address]t [place] [address] Care Team Providers Care Stock Order Lister Name Role Phone Name, Enzo MARTELL Primary Care Provider [phone] Reason for Visit * Reason Comments Med Refill Encounter Details Date Type Department Care Team ([facility] st Contact Info) Description 08/22/2024 Refill [facility] MEDICINE [address] [place], [place] [phone] Name, MD Enzo [address] [place], [place] [phone] Social History Tobacco Use Types Packs/Day Years [...] AM EDT documented as of this encounter Plan of Treatment Not on file documented as of this encounter Visit Diagnoses Not on filedocumented in this encounter Care Teams Stock Order Lister Relationship Specialty Start Date End Date Name, MD Enzo [address] [place] [address] PCP - General Internal Medicine 10/12/23 documented as of this encounter
== END 2024-08-26 12:17 | disposition home or self-care (01) ==
LOC: HO.HUSH 10:51
PROVIDERS: PCP Internal Medicine Geriatric Medicine; Visit Provider Urology
DX: N31.9 Neuromuscular dysfunction of bladder, unspecified (principal); N20.0 Calculus of kidney
CPT/HCPCS: 99213

== ENCOUNTER → 2024-08-26 10:50 | Outpatient (BNVA) | payer MEDICAID, SELFPAY | PROVIDERS: PCP Internal Medicine Geriatric Medicine; Visit Provider Urology | DX: N20.0 Calculus of kidney (principal); N31.9 Neuromuscular dysfunction of bladder, unspecified | CPT/HCPCS: 99212 ==

== ENCOUNTER → 2024-09-06 09:38 | Outpatient (BNVA) | payer MEDICAID, SELFPAY | PROVIDERS: PCP Internal Medicine Geriatric Medicine; Visit Provider Urology | DX: N13.9 Obstructive and reflux uropathy, unspecified (principal) | CPT/HCPCS: 51705 ==

== ENCOUNTER → 2024-10-04 08:17 | Outpatient (BNVA) | payer MEDICAID, SELFPAY | PROVIDERS: PCP Internal Medicine Geriatric Medicine; Visit Provider Urology | DX: N13.9 Obstructive and reflux uropathy, unspecified (principal) | CPT/HCPCS: 51705 ==

== ENCOUNTER → 2024-11-01 09:19 | Outpatient (BNVA) | payer MEDICAID, SELFPAY | PROVIDERS: PCP Internal Medicine Geriatric Medicine; Visit Provider Urology | DX: Z46.6 Encounter for fitting and adjustment of urinary device (principal) | CPT/HCPCS: 51705 ==

== ENCOUNTER 2024-11-04 12:22 | Outpatient (REF) | payer MEDICAID, SELFPAY ==
--- OUTSIDE RECORDS SUMMARY | 2024-11-04 12:25 | XMS_ITS | Encounter Summary ---
Author Organization [employer] Address [address] [facility] 7t [place] [address] Care Team Providers Care Oxygen Therapist Name Role Phone Name, Enzo MARTELL Primary Care Provider [phone] Reason for Visit * Reason Onset Date Comments Lab Orders 09/06/2024 Encounter Details Date Type Department Care Team ([facility] st Contact Info) Description 09/06/2024 Telephone [facility] MEDICINE [address] [place], [place] [phone] Name, MD Enzo [address] [place] [address] Lab Orders Social History Tobacco Use Types Packs/Day Years [...] encounter Miscellaneous Notes * Telephone Encounter - Enzo Elias - 11/01/2024 11:27 AM EDT Tc from pt requesting lab results back. Contact pt at [phone] * Telephone Encounter - Ryanne Bell RN - 09/06/2024 9:51 AM EDT CBC, CMP, MMR Antibodies, Heptitis Panel (General), TSH with Reflex to Free T4 lab orders faxed to provided [facility] fax number [phone]. There were duplicate CBC orders, most recent faxed to lab. Additionally, BMP and CMP orders, faxed CMP order. Confirmation received and placed in medical records bin for scanning. TC placed to pt's mother to advise lab order faxed to provided fax number. Pt's mother verbalized understanding and denies questions at this time. * Telephone Encounter - Lubna Newton - 09/06/2024 9:34 AM EDT Tc from mom requesting all lab orders placed from May to present be sent to [facility] Location - [address] [place] [address], [address], [address], [place] [address]. . Mom states patient has been experiencing ongoing difficulties and that staff at this location are familiar with his case and able to assist him more effectively. documented in this encounter Plan of Treatment Not on file documented as of this encounter Visit Diagnoses Not on filedocumented in this encounter Care Teams Oxygen Therapist Relationship Specialty Start Date End Date Name, MD Enzo [address] [place] [address] PCP - General Internal Medicine 10/12/23 documented as of this encounter
--- OUTSIDE RECORDS SUMMARY | 2024-11-04 12:25 | XMS_ITS | Clinical Summary ---
Author Organization [facility] Address [address] [place] [address] Phone Care Team Providers Care Cafeteria Attendant Name Role Phone Miky Pandya MD Primary Care Provider Miky Pandya MD Unavailable Miky Pandya MD Unavailable [phone] Social History Tobacco Use Types Packs/Day Years Used Date Smoking Tobacco: Never Assessed Sex and Gender Information Value Date Recorded Sex Assigned at Not on file Legal Sex Male 3:39 PM EDT Gender Identity Not on file Sexual Orientation Not on file Plan of Treatment Not on file Care Teams Cafeteria Attendant Relationship Specialty Start Date End Date Miky Pandya MD [address] [place] [address] PCP - General 01/23/06 Miky Pandya MD [address] [place] [address] PCP - Clinical PCP 11/30/12 Miky Pandya MD [address] [facility] [place] [address] PCP - Insurance PCP 01/23/06
--- OUTSIDE RECORDS SUMMARY | 2024-11-04 12:25 | XMS_ITS | Clinical Summary ---
Author Organization [facility] Address [address] [place] [address] Phone Care Team Providers Care Sheet Metal Helper Name Role Phone Unavailable Primary Care Provider [...] 95 08/30/2015 12:00 AM EDT Temperature 36.4 C (97.5 F) 05/19/2016 12:00 AM EST Respiratory Rate - - Oxygen Saturation 94% 12/20/2015 12:00 AM EDT Inhaled Oxygen Concentration - - Weight 45.3 kg (99 lb 12.8 oz) 12/20/2015 12:00 AM EDT Height 121.9 cm (4') 11/11/2013 12:00 AM EDT Body Mass Index 30.45 11/11/2013 12:00 AM EDT Plan of Treatment Health Maintenance Due Date Last Done Comments COVID-19 Vaccine ( season) 2023 03/14/2021, 06/19/2020, 05/22/2020 Influenza Vaccines (#1) 2024 03/03/20, 01/04/2020, 01/27/2019, Additional history exists DTaP,Tdap,and Td Vaccines (9 - Td or [...]
== END 2024-11-04 12:23 | disposition home or self-care (01) ==
LOC: HO.XRAY 12:22
PROVIDERS: PCP Internal Medicine Geriatric Medicine; Visit Provider Student in an Organized Health Care Education/Training Program
DX: Z13.89 Encounter for screening for other disorder (principal)

== ENCOUNTER 2024-11-04 17:55 | Outpatient (REF) | payer MEDICAID, SELFPAY ==
--- OUTSIDE RECORDS SUMMARY | 2024-11-05 12:05 | XMS_ITS | Clinical Summary ---
Author Organization [facility] Address [address] [place] [address] Phone Care Team Providers Care Business Continuity Director Name Role Phone Miky Pandya MD Primary Care Provider Miky Pandya MD Unavailable Miky Pandya MD Unavailable Social History Tobacco Use Types Packs/Day Years Used Date Smoking Tobacco: Never Assessed Sex and Gender Information Value Date Recorded Sex Assigned at Not on file Legal Sex Male 3:39 PM EDT Gender Identity Not on file Sexual Orientation Not on file Plan of Treatment Not on file Care Teams Business Continuity Director Relationship Specialty Start Date End Date Miky Pandya MD [address] [place] [address] PCP - General 01/23/06 Miky Pandya MD [address] [place] [address] PCP - Clinical PCP 11/30/12 Miky Pandya MD [address] [place] [address] PCP - Insurance PCP 01/23/06
--- OUTSIDE RECORDS SUMMARY | 2024-11-05 12:05 | XMS_ITS | Encounter Summary ---
Author Organization [employer] Address [address] [facility] 7t [place] [address] Care Team Providers Care Mussel Farmer Name Role Phone Name, Enzo MARTELL Primary Care Provider [phone] Reason for Visit * Reason Onset Date Comments Lab Orders 09/06/2024 Encounter Details Date Type Department Care Team ([facility] st Contact Info) Description 09/06/2024 Telephone [facility] MEDICINE [address] [place], [place] [phone] Name, MD Enzo [address] [place] [address] Lab Orders Social History Tobacco Use Types [...] requesting lab results back. Contact pt at [phone] * Telephone Encounter - Ryanne Bell RN - 09/06/2024 9:51 AM EDT CBC, CMP, MMR Antibodies, Heptitis Panel (General), TSH with Reflex to Free T4 lab orders faxed to provided [facility] fax number [phone]. There were duplicate CBC orders, most recent [...] from May to present be sent to [facility] Location - [address] [place] [address], [address], [address], [place] [address]. . Mom states patient has been experiencing ongoing difficulties and that staff at this location are familiar with his case and able to assist him more effectively. documented in this encounter Plan of Treatment Upcoming Encounters Date Type Department Care Team (Late st Contact Info) Description 01/27/2025 10:00 AM EST Office Visit [facility] MED[facility]INE [address] [place] [address] Name, MD Enzo [address] [place] [address] documented as of this encounter Visit Diagnoses Not on filedocumented in this encounter Care Teams Mussel Farmer Relationship Specialty Start Date End Date Name, MD Enzo [address] [place] [address] PCP - General Internal Medicine 10/12/23 documented as of this encounter
--- OUTSIDE RECORDS SUMMARY | 2024-11-05 12:05 | XMS_ITS | Clinical Summary ---
Author Organization [facility] Address [address] [place] [address] Phone Care Team Providers Care Design Center Consultant Name Role Phone Unavailable Primary Care Provider [...]
[2024-11-05 15:35] LABS: CDiff Gene PCR NEGATIVE (Negative)
== END 2024-11-04 17:56 | disposition home or self-care (01) ==
LOC: HO.HMGCLNP 17:55
PROVIDERS: PCP Student in an Organized Health Care Education/Training Program; Visit Provider Student in an Organized Health Care Education/Training Program
DX: R19.7 Diarrhea, unspecified (principal)
CPT/HCPCS: 87493

== ENCOUNTER 2024-11-08 10:15 | Outpatient (REF) | payer MEDICAID, SELFPAY ==
--- NOTE | ~2024-11-08 | XR_ITS ---
EXAMINATION: XR CHEST 2 VIEWS HISTORY: on and off fever to r/o PNA COMPARISON: There are no prior studies available for comparison. FINDINGS: PA and lateral views of the chest are submitted. There are low lung volumes. The lungs are clear. There is no pleural effusion, pneumothorax, or pulmonary vascular congestion. The heart is normal in size. There is a small hiatal hernia. The bones are intact. XR/XR chest 2V IMPRESSION: Small hiatal hernia. The lung volumes. The lungs are clear. Electronically signed by: Demarcus Mace MD 11/08/2024 11:18 AM EDT
--- NOTE | ~2024-11-08 | XR_ITS ---
EXAMINATION: XR ABDOMEN WITH DECUBITUS VIEWS CLINICAL INDICATION: pain COMPARISON: None available. TECHNIQUE: AP and cross lateral left decubitus abdomen and pelvis. FINDINGS: Inadequate evaluation due to flexed position of the upper extremities overlapping the upper abdomen. Scattered air-fluid levels in the upper mid abdomen with paucity of gas distally. There is a catheter overlapping the gastric bubble. XR/XR abdomen w decubitus IMPRESSION: Ileus versus distal bowel structures and. No pneumoperitoneum cannot be entirely excluded. If clinical concern recommend CT abdomen pelvis. Electronically signed by: Randy Jasmine MD 11/08/2024 11:20 AM EDT
[2024-11-08 10:52] LABS: MANUAL DIFF FLAG NO
[2024-11-08 11:23] LABS: Hematocrit 43.1 % (42.0-52.0); Hemoglobin 15.3 g/dl (14.0-18.0); Imm Gran Abs Auto 0.03 X10*3/uL (0.00-0.03); Imm Gran Pct Auto 0.4 % (0.0-0.4); Lymphocytes Absolute Auto 1.9 X10*3/uL (1.2-4.9); Mean Corpuscular HGB Conc 35.5 g/dl (31.0-36.0); Mean Corpuscular Hemoglobin 31.4 pg (27.0-33.0); Mean Corpuscular Volume 88.5 fL (80.0-98.0); NRBC Abs Auto 0.000 X10*3/uL (0.0-0.012); NRBC Pct Auto 0.0 /100WBC (0.0-0.2); Platelet Count 295 X10*3/uL (160-400); Red Blood Count 4.87 X10*6/uL (4.60-5.80); White Blood Count 7.7 X10*3/uL (4.8-10.8)
--- OUTSIDE RECORDS SUMMARY | 2024-11-08 11:31 | XMS_ITS | Encounter Summary ---
Author Organization [employer] Address [address] [facility] 7t [place] [address] Care Team Providers Care Coating Machine Operator Helper Name Role Phone Name, Enzo MARTELL Primary Care Provider [phone] Encounter Details Date Type Department Care Team ([facility] st Contact Info) Description 11/04/2024 Orders Only [facility] MEDICINE [address] [place], [place] [phone] Katy [place] MD [address] [place] [address] Social History Tobacco Use Types Packs/Day Years [...] AM EDT documented as of this encounter Functional Status * Over the last 2 weeks, how often have you been bothered by any of the following problems? Question Answer Date of Assessment Author Feeling nervous, anxious, or on edge 0 11/04/2024 11:23 AM EDT Hailey Nelson [place] Not being able to stop or co ntrol worrying 0 11/04/2024 11:23 AM EDT Hailey Nelson [place] Worrying too much about diff erent things 0 11/04/2024 11:23 AM EDT Hailey Nelson [place] Trouble relaxing 0 11/04/2024 11:23 AM EDT Hailey Nelson [place] Being so restless that it is hard to sit still 0 11/04/2024 11:23 AM EDT Hailey Nelson [place] Becoming easily annoyed or irritable 0 11/04/2024 11:23 AM EDT Hailey Nelson [place] Feeling afraid as if somethi ng awful might happen 0 11/04/2024 11:23 AM EDT Hailey Nelson MA REMA-7 Total Score 0 11/04/2024 11:23 AM EDT Hailey Nelson [place] documented as of this encounter Plan of Treatment Upcoming Encounters Date Type Department Care Team (Late st Contact Info) Description 01/27/2025 10:00 AM EST Office Visit [facility] MED[facility]INE [address] [place] [address] Name, MD Enzo [address] [place] [address] documented as of this encounter Procedures Procedure Name Priority Date/Time Associated Diagnosis Comments CDIFF GENE PCR Routine 11/04/2024 5:55 PM EDT documented in this encounter Results * CDiff Gene PCR (11/04/2024 5:55 PM EDT) CDiff Gene PCR NEGATIVE Negative [facility] Comment:If C. difficile stro ngly suspected despite one negativetest, a second test may be sent vs. empiric treatment forC. difficile infection. 11/04/2024 5:55 PM EDT 11/05/2024 2:31 PM EDT us Katy Bell MD LAB BODY FLUIDS A ND STOOLS ORDERABLES Final Result [facility] [address] [place] [phone] documented in this encounter Visit Diagnoses Not on filedocumented in this encounter Care Teams Coating Machine Operator Helper Relationship Specialty Start Date End Date Name, MD Enzo [address] [place] [address] PCP - General Internal Medicine 10/12/23 documented as of this encounter
--- OUTSIDE RECORDS SUMMARY | 2024-11-08 11:31 | XMS_ITS | Clinical Summary ---
Author Organization [facility] Address [address] [place] [address] Phone Care Team Providers Care Open Tenter Operator Name Role Phone Miky Pandya MD Primary Care Provider Miky Pandya MD Unavailable Miky Pandya MD Unavailable [phone] Social History Tobacco Use Types Packs/Day Years Used Date Smoking Tobacco: Never Assessed Sex and Gender Information Value Date Recorded Sex Assigned at Not on file Legal Sex Male 3:39 PM EDT Gender Identity Not on file Sexual Orientation Not on file Plan of Treatment Not on file Care Teams Open Tenter Operator Relationship Specialty Start Date End Date Miky Panday MD [address] [place] [address] PCP - General 01/23/06 Miky Pandya MD [address] [place] [address] PCP - Clinical PCP 11/30/12 Miky Pandya MD [address] [place] [address] PCP - Insurance PCP 01/23/06
[2024-11-08 12:10] LABS: Alanine Aminotransferase 33 U/L (0-40); Albumin Level 4.2 g/dL (3.5-5.0); Alkaline Phosphatase 75 U/L (39-117); Anion Gap 14 (12-20); Aspartate Amino Transferase 21 U/L (5-37); Blood Urea Nitrogen 11 mg/dL (9-16); Calcium 9.3 mg/dL (8.4-10.2); Carbon Dioxide 25 mmol/L (22-29); Chloride 104 mmol/L (96-108); Estimated Glomerular Filt Rate > 60; Potassium 4.6 mmol/L (3.3-5.1); Sodium 138 mmol/L (135-145); Total Protein 7.0 g/dL (6.5-8.0)
[2024-11-08 12:20] LABS: HBS Num1 0.04 mIU/mL (0-7.99); HBc Num1 0.10 S/CO (0.00-0.79); HBsAGNum1 0.45 S/CO (0.00-0.99); Hepatitis A Antibody IgM 0.21 Index (0-0.79); Hepatitis B Surface Antigen Negative (Negative); ~HepC Num1 0.13 S/CO (0.00-0.79); ~Hepatitis A Antibody IgM Nonreactive (Nonreactive); ~Hepatitis B Surface Antibody NONREACTIVE (Nonreactive); ~Hepatitis C Antibody Nonreactive (Nonreactive)
[2024-11-09 07:10] LABS: E. coli EAEC Not Detected (Not Detect.); E. coli EPEC Not Detected (Not Detect.); E. coli ETEC Not Detected (Not Detect.); E. coli STEC Not Detected (Not Detect.); Shigella sp./EIEC Not Detected (Not Detect.)
[2024-11-09 07:14] LABS: Rubeola IgG (Measles) 57.10 AU/mL
== END 2024-11-08 10:16 | disposition home or self-care (01) ==
LOC: HO.XRAY 10:15
PROVIDERS: Internal Medicine; PCP Internal Medicine Geriatric Medicine; Visit Provider Student in an Organized Health Care Education/Training Program
DX: Z11.59 Encounter for screening for other viral diseases (principal); Z01.84 Encounter for antibody response examination; K21.9 Gastro-esophageal reflux disease without esophagitis; G80.0 Spastic quadriplegic cerebral palsy; R50.9 Fever, unspecified; R19.7 Diarrhea, unspecified; R10.9 Unspecified abdominal pain
CPT/HCPCS: 36415; 71046; 74021; 80053; 84443; 85025; 86704; 86706; 86709; 86735; 86762; 86765; 86803; 87340; 87507

== ENCOUNTER → 2024-11-08 10:53 | Outpatient (BNV) | payer MEDICAID, SELFPAY | PROVIDERS: PCP Internal Medicine Geriatric Medicine; Visit Provider Radiology Diagnostic Radiology | DX: R14.0 Abdominal distension (gaseous) (principal); R50.9 Fever, unspecified | CPT/HCPCS: 71046; 74021 ==

== ENCOUNTER 2024-11-18 11:44 | Outpatient (REF) | payer MEDICAID, SELFPAY ==
--- OUTSIDE RECORDS SUMMARY | 2024-11-18 12:45 | XMS_ITS | Encounter Summary ---
Author Organization [facility] Address [address] [place] [address] Phone Care Team Providers Care Metal Grinder Name Role Phone Miky Pandya MD Primary Care Provider [phone] Encounter Details Date Type Department Care Team (Late st Contact Info) Description 06/16/2014 Documentation EM Family Medicine [address] [place] [address] Family Medicine, Physician [address] [place], [place] [phone] Social History Tobacco Use Types Packs/Day Years [...] on filedocumented in this encounter Care Teams Metal Grinder Relationship Specialty Start Date End Date Miky Pandya MD [address] [place] [address] [place] [address] PCP - General 10/31/16 08/21/22 documented as of this encounter
--- OUTSIDE RECORDS SUMMARY | 2024-11-18 12:45 | XMS_ITS | Clinical Summary ---
Author Organization [facility] Address [address] [place] [address] Phone Care Team Providers Care Oracle Application Consultant Name Role Phone Unavailable Primary Care [...]
--- OUTSIDE RECORDS SUMMARY | 2024-11-18 12:45 | XMS_ITS | Encounter Summary ---
Author Organization [facility] Address [address] [place] [address] Phone Care Team Providers Care Records Management Analyst Name Role Phone Miky Pandya MD Primary Care Provider [phone] Encounter Details Date Type Department Care Team (Late st Contact Info) Description 06/28/2014 Documentation EM Family Medicine [address] [place] [address] Family Medicine, Physician [address] [place], [place] [phone] Social History Tobacco Use Types Packs/Day Years [...] on filedocumented in this encounter Care Teams Records Management Analyst Relationship Specialty Start Date End Date Miky Pandya MD [address] [place] [address] [place] [address] PCP - General 10/31/16 08/21/22 documented as of this encounter
--- OUTSIDE RECORDS SUMMARY | 2024-11-18 12:45 | XMS_ITS | Encounter Summary ---
Author Organization [facility] Address [address] [place] [address] Phone Care Team Providers Care Strategic Analyst Name Role Phone Miky Pandya MD Primary Care Provider [phone] Encounter Details Date Type Department Care Team (Late st Contact Info) Description 10/13/2012 Documentation EM Family Medicine [address] [place] [address] Family Medicine, Physician [address] [place], [place] [id number] Social History Tobacco Use Types Packs/Day Years [...] on filedocumented in this encounter Care Teams Strategic Analyst Relationship Specialty Start Date End Date Miky Pandya MD [address] [place] [address] [place] [address] PCP - General 10/31/16 08/21/22 documented as of this encounter
--- OUTSIDE RECORDS SUMMARY | 2024-11-18 12:45 | XMS_ITS | Encounter Summary ---
Author Organization [facility] Address [address] [place] [address] Phone Care Team Providers Care Border Patrol Agent Name Role Phone Miky Pandya MD Primary Care Provider Encounter Details Date Type Department Care Team (Late st Contact Info) Description 11/19/2012 Documentation EM Family Medicine [address] [place] [address] Family Medicine, Physician [address] [place], [place] [phone] Social History Tobacco Use Types Packs/Day Years [...] on filedocumented in this encounter Care Teams Border Patrol Agent Relationship Specialty Start Date End Date Miky Pandya MD [address] [place] [address] [place] [address] PCP - General 10/31/16 08/21/22 documented as of this encounter
--- OUTSIDE RECORDS SUMMARY | 2024-11-18 12:45 | XMS_ITS | Encounter Summary ---
Author Organization [facility] Address [address] [place] [address] Phone Care Team Providers Care Road Contractor Name Role Phone Miky Pandya MD Primary Care Provider [phone] Encounter Details Date Type Department Care Team (Late st Contact Info) Description 09/02/2012 Documentation EM Family Medicine [address] [place] [address] Family Medicine, Physician [address] [place], [place] [phone] Social History Tobacco Use Types Packs/Day Years [...] on filedocumented in this encounter Care Teams Road Contractor Relationship Specialty Start Date End Date Miky Pandya MD [address] [place] [address] [place] [address] PCP - General 10/31/16 08/21/22 documented as of this encounter
--- OUTSIDE RECORDS SUMMARY | 2024-11-18 12:45 | XMS_ITS | Encounter Summary ---
Author Organization [facility] Address [address] [place] [address] Phone Care Team Providers Care Recreation Leader Name Role Phone Miky Pandya MD Primary Care Provider [phone] Encounter Details Date Type Department Care Team (Late st Contact Info) Description 11/06/2016 Conversion Encounter [facility] [address] [place] [address] Social History Tobacco Use Types Packs/Day Years [...] on filedocumented in this encounter Care Teams Recreation Leader Relationship Specialty Start Date End Date Miky Pandya MD [address] [place] [address] PCP - General 10/31/16 08/21/22 documented as of this encounter
--- OUTSIDE RECORDS SUMMARY | 2024-11-18 12:45 | XMS_ITS | Encounter Summary ---
Author Organization [facility] Address [address] [place] [address] Phone Care Team Providers Care Paper Novelty Maker Name Role Phone Miky Pandya MD Primary Care Provider [phone] Encounter Details Date Type Department Care Team (Late st Contact Info) Description 05/29/2009 Documentation EM Family Medicine [address] [place] [address] Family Medicine, Physician [address] [place], [place] [phone] Social History Tobacco Use Types Packs/Day Years [...] on filedocumented in this encounter Care Teams Paper Novelty Maker Relationship Specialty Start Date End Date Miky Pandya MD [address] [place] [address] [place] [address] PCP - General 10/31/16 08/21/22 documented as of this encounter
--- OUTSIDE RECORDS SUMMARY | 2024-11-18 12:45 | XMS_ITS | Encounter Summary ---
Author Organization [facility] Address [address] [place] [address] Phone Care Team Providers Care Engraver Signature Name Role Phone Miky Pandya MD Primary Care Provider [phone] Encounter Details Date Type Department Care Team (Late st Contact Info) Description 12/08/2013 Documentation EM Family Medicine [address] [place] [address] Family Medicine, Physician [address] [place], [place] [phone] Social History Tobacco Use Types Packs/Day Years [...] on filedocumented in this encounter Care Teams Engraver Signature Relationship Specialty Start Date End Date Miky Pandya MD [address] [place] [address] [place] [address] PCP - General 10/31/16 08/21/22 documented as of this encounter
--- OUTSIDE RECORDS SUMMARY | 2024-11-18 12:45 | XMS_ITS | Encounter Summary ---
Author Organization [facility] Address [address] [place] [address] Phone Care Team Providers Care Internal Medicine Physician Name Role Phone Miky Pandya MD Primary Care Provider [phone] Encounter Details Date Type Department Care Team (Late st Contact Info) Description 03/29/2014 Documentation EM Family Medicine [address] [place] [address] Family Medicine, Physician [address] [place], [place] [phone] Social History Tobacco Use Types Packs/Day Years [...] on filedocumented in this encounter Care Teams Internal Medicine Physician Relationship Specialty Start Date End Date Miky Pandya MD [address] [place] [address] [place] [address] PCP - General 10/31/16 08/21/22 documented as of this encounter
--- OUTSIDE RECORDS SUMMARY | 2024-11-18 12:45 | XMS_ITS | Encounter Summary ---
Author Organization [facility] Address [address] [place] [address] Phone Care Team Providers Care Rheologist Name Role Phone Miky Pandya MD Primary Care Provider [phone] Encounter Details Date Type Department Care Team (Late st Contact Info) Description 10/27/2012 Documentation EM Family Medicine [address] [place] [address] Family Medicine, Physician [address] [place], [place] [phone] Social History Tobacco Use Types Packs/Day Years [...] on filedocumented in this encounter Care Teams Rheologist Relationship Specialty Start Date End Date Miky Pandya MD [address] [place] [address] [place] [address] PCP - General 10/31/16 08/21/22 documented as of this encounter
--- OUTSIDE RECORDS SUMMARY | 2024-11-18 12:45 | XMS_ITS | Encounter Summary ---
Author Organization [facility] Address [address] [place] [address] Phone Care Team Providers Care Shelter Director Name Role Phone Miky Pandya MD Primary Care Provider [phone] Encounter Details Date Type Department Care Team (Late st Contact Info) Description 06/06/2011 Documentation EM Family Medicine [address] [place] [address] Family Medicine, Physician [address] [place], [place] [phone] Social History Tobacco Use Types Packs/Day Years [...] on filedocumented in this encounter Care Teams Shelter Director Relationship Specialty Start Date End Date Miky Pandya MD [address] [place] [address] [place] [address] PCP - General 10/31/16 08/21/22 documented as of this encounter
--- OUTSIDE RECORDS SUMMARY | 2024-11-18 12:45 | XMS_ITS | Encounter Summary ---
Author Organization [facility] Address [address] [place] [address] Phone Care Team Providers Care Cell Manager Name Role Phone Miky Pandya MD Primary Care Provider [phone] Encounter Details Date Type Department Care Team (Late st Contact Info) Description 12/08/2013 Documentation EM Family Medicine [address] [place] [address] Family Medicine, Physician [address] [place], [place] [phone] Social History Tobacco Use Types Packs/Day Years [...] on filedocumented in this encounter Care Teams Cell Manager Relationship Specialty Start Date End Date Miky Pandya MD [address] [place] [address] [place] [address] PCP - General 10/31/16 08/21/22 documented as of this encounter
--- OUTSIDE RECORDS SUMMARY | 2024-11-18 12:45 | XMS_ITS | Encounter Summary ---
Author Organization [facility] Address [address] [place] [address] Phone Care Team Providers Care It Solutions Sales Consultant Name Role Phone Miky Pandya MD Primary Care Provider [phone] Encounter Details Date Type Department Care Team (Late st Contact Info) Description 10/30/2009 Documentation EM Family Medicine [address] [place] [address] Family Medicine, Physician [address] [place], [place] [phone] Social History Tobacco Use Types Packs/Day Years [...] on filedocumented in this encounter Care Teams It Solutions Sales Consultant Relationship Specialty Start Date End Date Miky Pandya MD [address] [place] [address] [place] [address] PCP - General 10/31/16 08/21/22 documented as of this encounter
--- OUTSIDE RECORDS SUMMARY | 2024-11-18 12:45 | XMS_ITS | Encounter Summary ---
Author Organization [facility] Address [address] [place] [address] Phone Care Team Providers Care Front Office Specialist Name Role Phone Miky Pandya MD Primary Care Provider Encounter Details Date Type Department Care Team (Late st Contact Info) Description 11/19/2012 Documentation EM Family Medicine [address] [place] [address] Family Medicine, Physician [address] [place], [place] [phone] Social History Tobacco Use Types Packs/Day Years [...] on filedocumented in this encounter Care Teams Front Office Specialist Relationship Specialty Start Date End Date Miky Pandya MD [address] [place] [address] [place] [address] PCP - General 10/31/16 08/21/22 documented as of this encounter
--- OUTSIDE RECORDS SUMMARY | 2024-11-18 12:45 | XMS_ITS | Encounter Summary ---
Author Organization [facility] Address [address] [place] [address] Phone Care Team Providers Care Health Care Coordinator Name Role Phone Miky Pandya MD Primary Care Provider [phone] Encounter Details Date Type Department Care Team (Late st Contact Info) Description 09/04/2014 Documentation EM Family Medicine [address] [place] [address] Family Medicine, Physician [address] [place], [place] [phone] Social History Tobacco Use Types Packs/Day Years [...] on filedocumented in this encounter Care Teams Health Care Coordinator Relationship Specialty Start Date End Date Miky Pandya MD [address] [place] [address] [place] [address] PCP - General 10/31/16 08/21/22 documented as of this encounter
--- OUTSIDE RECORDS SUMMARY | 2024-11-18 12:45 | XMS_ITS | Encounter Summary ---
Author Organization [facility] Address [address] [place] [address] Phone Care Team Providers Care Borematic Machine Operator Name Role Phone Miky Pandya MD Primary Care Provider [phone] Encounter Details Date Type Department Care Team (Late st Contact Info) Description 10/06/2012 Documentation EM Family Medicine [address] [place] [address] Family Medicine, Physician [address] [place], [place] [phone] Social History Tobacco Use Types Packs/Day Years [...] on filedocumented in this encounter Care Teams Borematic Machine Operator Relationship Specialty Start Date End Date Miky Pandya MD [address] [place] [address] [place] [address] PCP - General 10/31/16 08/21/22 documented as of this encounter
--- OUTSIDE RECORDS SUMMARY | 2024-11-18 12:45 | XMS_ITS | Encounter Summary ---
Author Organization [facility] Address [address] [place] [address] Phone Care Team Providers Care Maintenance Truck Driver Name Role Phone Miky Pandya MD Primary Care Provider [phone] Encounter Details Date Type Department Care Team (Late st Contact Info) Description 05/23/2009 Documentation [facility] [address] [place] [address] Family Medicine, Physician [address] [place], [place] [phone] Social History Tobacco Use Types Packs/Day Years [...] on filedocumented in this encounter Care Teams Maintenance Truck Driver Relationship Specialty Start Date End Date Miky Pandya MD [address] [place] [address] [place] [address] PCP - General 10/31/16 08/21/22 documented as of this encounter
--- OUTSIDE RECORDS SUMMARY | 2024-11-18 12:45 | XMS_ITS | Encounter Summary ---
Author Organization [facility] Address [address] [place] [address] Phone Care Team Providers Care Management Manager Name Role Phone Miky Pandya MD Primary Care Provider [phone] Encounter Details Date Type Department Care Team (Late st Contact Info) Description 10/13/2012 Documentation EM Family Medicine [address] [place] [address] Family Medicine, Physician [address] [place], [place] [phone] Social History Tobacco Use Types Packs/Day Years [...] on filedocumented in this encounter Care Teams Management Manager Relationship Specialty Start Date End Date Miky Pandya MD [address] [place] [address] [place] [address] PCP - General 10/31/16 08/21/22 documented as of this encounter
--- OUTSIDE RECORDS SUMMARY | 2024-11-18 12:45 | XMS_ITS | Encounter Summary ---
Author Organization [facility] Address [address] [place] [address] Phone Care Team Providers Care Physical Therapy Aid Name Role Phone Miky Pandya MD Primary Care Provider [phone] Encounter Details Date Type Department Care Team (Late st Contact Info) Description 10/02/2014 Documentation EM Family Medicine [address] [place] [address] Family Medicine, Physician [address] [place], [place] [phone] Social History Tobacco Use Types Packs/Day Years [...] on filedocumented in this encounter Care Teams Physical Therapy Aid Relationship Specialty Start Date End Date Miky Pandya MD [address] [place] [address] [place] [address] PCP - General 10/31/16 08/21/22 documented as of this encounter
--- OUTSIDE RECORDS SUMMARY | 2024-11-18 12:45 | XMS_ITS | Encounter Summary ---
Author Organization [facility] Address [address] [place] [address] Phone Care Team Providers Care Tire Recapper Name Role Phone Miky Pandya MD Primary Care Provider [phone] Reason for Visit * Reason Comments Med Refill Encounter Details Date Type Department Care Team (Late st Contact Info) Description 12/09/2016 Refill [facility] [place] [address] [place] [address] Miky Pandya MD [address] [place] [address] Social History Tobacco Use Types Packs/Day Years [...] on filedocumented in this encounter Care Teams Tire Recapper Relationship Specialty Start Date End Date Miky Pandya MD [address] [place] [address] PCP - General 10/31/16 08/21/22 documented as of this encounter
--- OUTSIDE RECORDS SUMMARY | 2024-11-18 12:46 | XMS_ITS | Encounter Summary ---
Author Organization [facility] Address [address] [place] [address] Phone Care Team Providers Care Precision Lathe Operator Name Role Phone Miky Pandya MD Primary Care Provider [phone] Encounter Details Date Type Department Care Team (Late st Contact Info) Description 12/08/2013 Documentation EM Family Medicine [address] [place] [address] Family Medicine, Physician [address] [place], [place] [phone] Social History Tobacco Use Types Packs/Day Years [...] on filedocumented in this encounter Care Teams Precision Lathe Operator Relationship Specialty Start Date End Date Miky Pandya MD [address] [place] [address] [place] [address] PCP - General 10/31/16 08/21/22 documented as of this encounter
--- OUTSIDE RECORDS SUMMARY | 2024-11-18 12:46 | XMS_ITS | Encounter Summary ---
Author Organization [facility] Address [address] [place] [address] Phone Care Team Providers Care Crozer Name Role Phone Miky Pandya MD Primary Care Provider [phone] Encounter Details Date Type Department Care Team (Late st Contact Info) Description 12/06/2015 Documentation EM Family Medicine [address] [place] [address] Family Medicine, Physician [address] [place], [place] [phone] Social History Tobacco Use Types Packs/Day Years [...] on filedocumented in this encounter Care Teams Crozer Relationship Specialty Start Date End Date Miky Pandya MD [address] [place] [address] [place] [address] PCP - General 10/31/16 08/21/22 documented as of this encounter
--- OUTSIDE RECORDS SUMMARY | 2024-11-18 12:46 | XMS_ITS | Encounter Summary ---
Author Organization [facility] Address [address] [place] [address] Phone Care Team Providers Care Title Department Manager Name Role Phone Miky Pandya MD Primary Care Provider [phone] Encounter Details Date Type Department Care Team (Late st Contact Info) Description 12/08/2013 Documentation EM Family Medicine [address] [place] [address] Family Medicine, Physician [address] [place], [place] [phone] Social History Tobacco Use Types Packs/Day Years [...] on filedocumented in this encounter Care Teams Title Department Manager Relationship Specialty Start Date End Date Miky Pandya MD [address] [place] [address] [place] [address] PCP - General 10/31/16 08/21/22 documented as of this encounter
--- OUTSIDE RECORDS SUMMARY | 2024-11-18 12:46 | XMS_ITS | Encounter Summary ---
Author Organization [facility] Address [address] [place] [address] Phone Care Team Providers Care Criminology Professor Name Role Phone Miky Pandya MD Primary Care Provider Encounter Details Date Type Department Care Team (Late st Contact Info) Description 05/16/2016 Documentation EM Family Medicine [address] [place] [address] Family Medicine, Physician [address] [place], [place] [phone] Social History Tobacco Use Types Packs/Day Years [...] on filedocumented in this encounter Care Teams Criminology Professor Relationship Specialty Start Date End Date Miky Pandya MD [address] [place] [address] [place] [address] PCP - General 10/31/16 08/21/22 documented as of this encounter
--- OUTSIDE RECORDS SUMMARY | 2024-11-18 12:46 | XMS_ITS | Encounter Summary ---
Author Organization [facility] Address [address] [place] [address] Phone Care Team Providers Care Tool Machinist Name Role Phone Miky Pandya MD Primary Care Provider Encounter Details Date Type Department Care Team (Late st Contact Info) Description 08/10/2009 Documentation EM Family Medicine [address] [place] [address] Family Medicine, Physician [address] [place], [place] [phone] Social History Tobacco Use Types Packs/Day Years [...] on filedocumented in this encounter Care Teams Tool Machinist Relationship Specialty Start Date End Date Miky Pandya MD [address] [place] [address] [place] [address] PCP - General 10/31/16 08/21/22 documented as of this encounter
--- OUTSIDE RECORDS SUMMARY | 2024-11-18 12:46 | XMS_ITS | Encounter Summary ---
Author Organization [facility] Address [address] [place] [address] Phone Care Team Providers Care Pie Bakery Laborer Name Role Phone Miky Pandya MD Primary Care Provider [phone] Encounter Details Date Type Department Care Team (Late st Contact Info) Description 12/06/2015 Documentation EM Family Medicine [address] [place] [address] Family Medicine, Physician [address] [place], [place] [phone] Social History Tobacco Use Types Packs/Day Years [...] on filedocumented in this encounter Care Teams Pie Bakery Laborer Relationship Specialty Start Date End Date Miky Pandya MD [address] [place] [address] [place] [address] PCP - General 10/31/16 08/21/22 documented as of this encounter
--- OUTSIDE RECORDS SUMMARY | 2024-11-18 12:46 | XMS_ITS | Encounter Summary ---
Author Organization [facility] Address [address] [place] [address] Phone Care Team Providers Care Paint Stockman Name Role Phone Miky Pandya MD Primary Care Provider [phone] Encounter Details Date Type Department Care Team (Late st Contact Info) Description 01/16/2012 Documentation EM Family Medicine [address] [place] [address] Family Medicine, Physician [address] [place], [place] [phone] Social History Tobacco Use Types Packs/Day Years [...] on filedocumented in this encounter Care Teams Paint Stockman Relationship Specialty Start Date End Date Miky Pandya MD [address] [place] [address] [place] [address] PCP - General 10/31/16 08/21/22 documented as of this encounter
--- OUTSIDE RECORDS SUMMARY | 2024-11-18 12:46 | XMS_ITS | Encounter Summary ---
Author Organization [facility] Address [address] [place] [address] Phone Care Team Providers Care Sausage Wrapper Name Role Phone Miky Pandya MD Primary Care Provider [phone] Encounter Details Date Type Department Care Team (Late st Contact Info) Description 12/06/2015 Documentation EM Family Medicine [address] [place] [address] Family Medicine, Physician [address] [place], [place] [phone] Social History Tobacco Use Types Packs/Day Years [...] on filedocumented in this encounter Care Teams Sausage Wrapper Relationship Specialty Start Date End Date Miky Pandya MD [address] [place] [address] [place] [address] PCP - General 10/31/16 08/21/22 documented as of this encounter
--- OUTSIDE RECORDS SUMMARY | 2024-11-18 12:46 | XMS_ITS | Encounter Summary ---
Author Organization [facility] Address [address] [place] [address] Phone Care Team Providers Care Burner Operator Name Role Phone Miky Pandya MD Primary Care Provider [phone] Encounter Details Date Type Department Care Team (Late st Contact Info) Description 01/19/2013 Documentation EM Family Medicine [address] [place] [address] Family Medicine, Physician [address] [place], [place] [phone] Social History Tobacco Use Types Packs/Day Years [...] on filedocumented in this encounter Care Teams Burner Operator Relationship Specialty Start Date End Date Miky Pandya MD [address] [place] [address] [place] [address] PCP - General 10/31/16 08/21/22 documented as of this encounter
--- OUTSIDE RECORDS SUMMARY | 2024-11-18 12:46 | XMS_ITS | Encounter Summary ---
Author Organization [facility] Address [address] [place] [address] Phone Care Team Providers Care Manager Retirement Name Role Phone Miky Pandya MD Primary Care Provider [phone] Encounter Details Date Type Department Care Team (Late st Contact Info) Description 12/06/2015 Documentation EM Family Medicine [address] [place] [address] Family Medicine, Physician [address] [place], [place] [phone] Social History Tobacco Use Types Packs/Day Years [...] on filedocumented in this encounter Care Teams Manager Retirement Relationship Specialty Start Date End Date Miky Pandya MD [address] [place] [address] [place] [address] PCP - General 10/31/16 08/21/22 documented as of this encounter
--- OUTSIDE RECORDS SUMMARY | 2024-11-18 12:46 | XMS_ITS | Encounter Summary ---
Author Organization [facility] Address [address] [place] [address] Phone Care Team Providers Care Tow Car Driver Name Role Phone Miky Pandya MD Primary Care Provider [phone] Encounter Details Date Type Department Care Team (Late st Contact Info) Description 12/06/2015 Documentation EM Family Medicine [address] [place] [address] Family Medicine, Physician [address] [place], [place] [phone] Social History Tobacco Use Types Packs/Day Years [...] on filedocumented in this encounter Care Teams Tow Car Driver Relationship Specialty Start Date End Date Miky Pandya MD [address] [place] [address] [place] [address] PCP - General 10/31/16 08/21/22 documented as of this encounter
--- OUTSIDE RECORDS SUMMARY | 2024-11-18 12:46 | XMS_ITS | Clinical Summary ---
Author Organization [facility] Address [address] [place] [address] Phone Care Team Providers Care Tinsmith Helper Name Role Phone Miky Pandya MD [...] of Treatment Not on file Care Teams Tinsmith Helper Relationship Specialty Start Date End Date Miky Pandya MD [address] [place] [address] PCP - General 01/23/06 Miky Pandya MD [address] [place] [address] PCP - Clinical PCP 11/30/12 Miky Pandya MD 150 [place] [address] PCP - Insurance PCP 01/23/06
--- OUTSIDE RECORDS SUMMARY | 2024-11-18 12:46 | XMS_ITS | Encounter Summary ---
Author Organization [facility] Address [address] [place] [address] Phone Care Team Providers Care Rock Mason Name Role Phone Miky Pandya MD Primary Care Provider [phone] Encounter Details Date Type Department Care Team (Late st Contact Info) Description 12/08/2013 Documentation EM Family Medicine [address] [place] [address] Family Medicine, Physician [address] [place], [place] [id number] Social History Tobacco Use Types Packs/Day Years [...] on filedocumented in this encounter Care Teams Rock Mason Relationship Specialty Start Date End Date Miky Pandya MD [address] [place] [address] [place] [address] PCP - General 10/31/16 08/21/22 documented as of this encounter
--- OUTSIDE RECORDS SUMMARY | 2024-11-18 12:46 | XMS_ITS | Encounter Summary ---
Author Organization [facility] Address [address] [place] [address] Phone Care Team Providers Care Printed Circuit Board Pcb Designer Name Role Phone Miky Pandya MD Primary Care Provider [phone] Encounter Details Date Type Department Care Team (Late st Contact Info) Description 12/06/2015 Documentation EM Family Medicine [address] [place] [address] Family Medicine, Physician [address] [place], [place] [phone] Social History Tobacco Use Types Packs/Day Years [...] on filedocumented in this encounter Care Teams Printed Circuit Board Pcb Designer Relationship Specialty Start Date End Date Miky Pandya MD [address] [place] [address] [place] [address] PCP - General 10/31/16 08/21/22 documented as of this encounter
--- OUTSIDE RECORDS SUMMARY | 2024-11-18 12:46 | XMS_ITS | Encounter Summary ---
Author Organization [facility] Address [address] [place] [address] Phone Care Team Providers Care Enrichment Director Name Role Phone Miky Pandya MD Primary Care Provider [phone] Encounter Details Date Type Department Care Team (Late st Contact Info) Description 12/06/2015 Documentation EM Family Medicine [address] [place] [address] Family Medicine, Physician [address] [place], [place] [phone] Social History Tobacco Use Types Packs/Day Years [...] on filedocumented in this encounter Care Teams Enrichment Director Relationship Specialty Start Date End Date Miky Pandya MD [address] [place] [address] [place] [address] PCP - General 10/31/16 08/21/22 documented as of this encounter
--- OUTSIDE RECORDS SUMMARY | 2024-11-18 12:46 | XMS_ITS | Encounter Summary ---
Author Organization [facility] Address [address] [place] [address] Phone Care Team Providers Care Plant Packer Name Role Phone Miky Pandya MD Primary Care Provider [phone] Encounter Details Date Type Department Care Team (Late st Contact Info) Description 12/06/2015 Documentation EM Family Medicine [address] [place] [address] Family Medicine, Physician [address] [place], [place] [phone] Social History Tobacco Use Types Packs/Day Years [...] on filedocumented in this encounter Care Teams Plant Packer Relationship Specialty Start Date End Date Miky Pandya MD [address] [place] [address] [place] [address] PCP - General 10/31/16 08/21/22 documented as of this encounter
--- OUTSIDE RECORDS SUMMARY | 2024-11-18 12:46 | XMS_ITS | Encounter Summary ---
Author Organization [facility] Address [address] [place] [address] Phone Care Team Providers Care Cafeteria Manager Name Role Phone Miky Pandya MD Primary Care Provider [phone] Encounter Details Date Type Department Care Team (Late st Contact Info) Description 04/28/2012 Documentation EM Family Medicine [address] [place] [address] Family Medicine, Physician [address] [place], [place] [phone] Social History Tobacco Use Types Packs/Day Years [...] on filedocumented in this encounter Care Teams Cafeteria Manager Relationship Specialty Start Date End Date Miky Pandya MD [address] [place] [address] [place] [address] PCP - General 10/31/16 08/21/22 documented as of this encounter
--- OUTSIDE RECORDS SUMMARY | 2024-11-18 12:46 | XMS_ITS | Encounter Summary ---
Author Organization [facility] Address [address] [place] [address] Phone Care Team Providers Care Reconsignment Clerk Name Role Phone Miky Pandya MD Primary Care Provider [phone] Encounter Details Date Type Department Care Team (Late st Contact Info) Description 12/06/2015 Documentation EM Family Medicine [address] [place] [address] Family Medicine, Physician [address] [place], [place] [phone] Social History Tobacco Use Types Packs/Day Years [...] on filedocumented in this encounter Care Teams Reconsignment Clerk Relationship Specialty Start Date End Date Miky Pandya MD [address] [place] [address] [place] [address] PCP - General 10/31/16 08/21/22 documented as of this encounter
--- OUTSIDE RECORDS SUMMARY | 2024-11-18 12:46 | XMS_ITS | Encounter Summary ---
Author Organization [facility] Address [address] [place] [address] Phone Care Team Providers Care Director Of Investigations Name Role Phone Miky Pandya MD Primary Care Provider [phone] Encounter Details Date Type Department Care Team (Late st Contact Info) Description 08/10/2009 Documentation EM Family Medicine [address] [place] [address] Family Medicine, Physician [address] [place], [place] [phone] Social History Tobacco Use Types Packs/Day Years [...] on filedocumented in this encounter Care Teams Director Of Investigations Relationship Specialty Start Date End Date Miky Pandya MD [address] [place] [address] [place] [address] PCP - General 10/31/16 08/21/22 documented as of this encounter
--- OUTSIDE RECORDS SUMMARY | 2024-11-18 12:46 | XMS_ITS | Encounter Summary ---
Author Organization [facility] Address [address] [place] [address] Phone Care Team Providers Care Broadcast Operations Manager Name Role Phone Miky Pandya MD Primary Care Provider [phone] Encounter Details Date Type Department Care Team (Late st Contact Info) Description 12/06/2015 Documentation EM Family Medicine [address] [place] [address] Family Medicine, Physician [address] [place], [place] [phone] Social History Tobacco Use Types Packs/Day Years [...] on filedocumented in this encounter Care Teams Broadcast Operations Manager Relationship Specialty Start Date End Date Miky Pandya MD [address] [place] [address] [place] [address] PCP - General 10/31/16 08/21/22 documented as of this encounter
--- OUTSIDE RECORDS SUMMARY | 2024-11-18 12:46 | XMS_ITS | Encounter Summary ---
Author Organization [facility] Address [address] [place] [address] Phone Care Team Providers Care Loan Processing Supervisor Name Role Phone Miky Pandya MD Primary Care Provider [phone] Encounter Details Date Type Department Care Team (Late st Contact Info) Description 04/26/2012 Documentation EM Family Medicine [address] [place] [address] Family Medicine, Physician [address] [place], [place] [phone] Social History Tobacco Use Types Packs/Day Years [...] on filedocumented in this encounter Care Teams Loan Processing Supervisor Relationship Specialty Start Date End Date Miky Pandya MD [address] [place] [address] [place] [address] PCP - General 10/31/16 08/21/22 documented as of this encounter
--- OUTSIDE RECORDS SUMMARY | 2024-11-18 12:46 | XMS_ITS | Encounter Summary ---
Author Organization [facility] Address [address] [place] [address] Phone Care Team Providers Care Community Organization Worker Name Role Phone Miky Pandya MD Primary Care Provider [phone] Encounter Details Date Type Department Care Team (Late st Contact Info) Description 12/06/2015 Documentation EM Family Medicine [address] [place] [address] Family Medicine, Physician [address] [place], [place] [phone] Social History Tobacco Use Types Packs/Day Years [...] on filedocumented in this encounter Care Teams Community Organization Worker Relationship Specialty Start Date End Date Miky Pandya MD [address] [place] [address] [place] [address] PCP - General 10/31/16 08/21/22 documented as of this encounter
--- OUTSIDE RECORDS SUMMARY | 2024-11-18 12:46 | XMS_ITS | Encounter Summary ---
Author Organization [facility] Address [address] [place] [address] Phone Care Team Providers Care Director Of Physiotherapy Services Name Role Phone Miky Pandya MD Primary Care Provider [phone] Encounter Details Date Type Department Care Team (Late st Contact Info) Description 08/02/2009 Documentation EM Family Medicine [address] [place] [address] Family Medicine, Physician [address] [place], [place] [phone] Social History Tobacco Use Types Packs/Day Years [...] in this encounter Care Teams Director Of Physiotherapy Services Relationship Specialty Start Date End Date Miky Pandya MD [address] [place] [address] [place] [address] PCP - General 10/31/16 08/21/22 documented as of this encounter
--- OUTSIDE RECORDS SUMMARY | 2024-11-18 12:46 | XMS_ITS | Encounter Summary ---
Author Organization [facility] Address [address] [place] [address] Phone Care Team Providers Care Integration Architect Name Role Phone Miky Pandya MD Primary Care Provider Encounter Details Date Type Department Care Team (Late st Contact Info) Description 04/08/2016 Documentation EM Family Medicine [address] [place] [address] Family Medicine, Physician [address] [place], [place] [phone] Social History Tobacco Use Types Packs/Day Years [...] on filedocumented in this encounter Care Teams Integration Architect Relationship Specialty Start Date End Date Miky Pandya MD [address] [place] [address] [place] [address] PCP - General 10/31/16 08/21/22 documented as of this encounter
--- OUTSIDE RECORDS SUMMARY | 2024-11-18 12:46 | XMS_ITS | Encounter Summary ---
Author Organization [facility] Address [address] [place] [address] Phone Care Team Providers Care Group Managing Director Name Role Phone Miky Pandya MD Primary Care Provider [phone] Encounter Details Date Type Department Care Team (Late st Contact Info) Description 04/22/2013 Documentation EM Family Medicine [address] [place] [address] Family Medicine, Physician [address] [place], [place] [phone] Social History Tobacco Use Types Packs/Day Years [...] on filedocumented in this encounter Care Teams Group Managing Director Relationship Specialty Start Date End Date Miky Pandya MD [address] [place] [address] [place] [address] PCP - General 10/31/16 08/21/22 documented as of this encounter
--- OUTSIDE RECORDS SUMMARY | 2024-11-18 12:46 | XMS_ITS | Encounter Summary ---
Author Organization [facility] Address [address] [place] [address] Phone Care Team Providers Care Plate Take Out Worker Name Role Phone Miky Pandya MD Primary Care Provider [phone] Encounter Details Date Type Department Care Team (Late st Contact Info) Description 05/16/2016 Documentation EM Family Medicine [address] [place] [address] Family Medicine, Physician [address] [place], [place] [phone] Social History Tobacco Use Types Packs/Day Years [...] on filedocumented in this encounter Care Teams Plate Take Out Worker Relationship Specialty Start Date End Date Miky Pandya MD [address] [place] [address] [place] [address] PCP - General 10/31/16 08/21/22 documented as of this encounter
--- OUTSIDE RECORDS SUMMARY | 2024-11-18 12:46 | XMS_ITS | Encounter Summary ---
Author Organization [facility] Address [address] [place] [address] Phone Care Team Providers Care Ham Passer Name Role Phone Miky Pandya MD Primary Care Provider [phone] Encounter Details Date Type Department Care Team (Late st Contact Info) Description 12/06/2015 Documentation EM Family Medicine [address] [place] [address] Family Medicine, Physician [address] [place], [place] [phone] Social History Tobacco Use Types Packs/Day Years [...] on filedocumented in this encounter Care Teams Ham Passer Relationship Specialty Start Date End Date Miky Pandya MD [address] [place] [address] [place] [address] PCP - General 10/31/16 08/21/22 documented as of this encounter
--- OUTSIDE RECORDS SUMMARY | 2024-11-18 12:46 | XMS_ITS | Encounter Summary ---
Author Organization [facility] Address [address] [place] [address] Phone Care Team Providers Care Greens Cutter Name Role Phone Miky Pandya MD Primary Care Provider [phone] Encounter Details Date Type Department Care Team (Late st Contact Info) Description 12/06/2015 Documentation EM Family Medicine [address] [place] [address] Family Medicine, Physician [address] [place], [place] [phone] Social History Tobacco Use Types Packs/Day Years [...] on filedocumented in this encounter Care Teams Greens Cutter Relationship Specialty Start Date End Date Miky Pandya MD [address] [place] [address] [place] [address] PCP - General 10/31/16 08/21/22 documented as of this encounter
--- OUTSIDE RECORDS SUMMARY | 2024-11-18 12:46 | XMS_ITS | Encounter Summary ---
Author Organization [facility] Address [address] [place] [address] Phone Care Team Providers Care Certified Medication Technician Name Role Phone Miky Pandya MD Primary Care Provider [phone] Encounter Details Date Type Department Care Team (Late st Contact Info) Description 05/16/2016 Documentation EM Family Medicine [address] [place] [address] Family Medicine, Physician [address] [place], [place] [phone] Social History Tobacco Use Types Packs/Day Years [...] on filedocumented in this encounter Care Teams Certified Medication Technician Relationship Specialty Start Date End Date Miky Pandya MD [address] [place] [address] [place] [address] PCP - General 10/31/16 08/21/22 documented as of this encounter
[2024-11-18 13:36] LABS: CDiff Gene PCR NEGATIVE (Negative)
== END 2024-11-18 11:45 | disposition home or self-care (01) ==
LOC: HO.HHCLNP 11:44
PROVIDERS: Visit Provider Internal Medicine Geriatric Medicine
DX: R19.7 Diarrhea, unspecified (principal)
CPT/HCPCS: 87493

== ENCOUNTER → 2024-11-29 09:27 | Outpatient (BNVA) | payer MEDICAID, SELFPAY | PROVIDERS: PCP Internal Medicine Geriatric Medicine; Visit Provider Urology | DX: N31.9 Neuromuscular dysfunction of bladder, unspecified (principal) | CPT/HCPCS: 51705 ==

== ENCOUNTER → 2024-12-27 08:46 | Outpatient (BNVA) | payer MEDICAID, SELFPAY | PROVIDERS: PCP Internal Medicine Geriatric Medicine; Visit Provider Urology | DX: Z46.6 Encounter for fitting and adjustment of urinary device (principal); N31.9 Neuromuscular dysfunction of bladder, unspecified | CPT/HCPCS: 51705 ==

== ENCOUNTER → 2025-01-24 09:19 | Outpatient (BNVA) | payer MEDICAID, SELFPAY | PROVIDERS: PCP Internal Medicine Geriatric Medicine; Visit Provider Urology | DX: Z46.6 Encounter for fitting and adjustment of urinary device (principal); N31.9 Neuromuscular dysfunction of bladder, unspecified | CPT/HCPCS: 51705 ==

== ENCOUNTER → 2025-02-21 08:54 | Outpatient (BNVA) | payer MEDICAID, SELFPAY | PROVIDERS: PCP Internal Medicine Geriatric Medicine; Visit Provider Urology | DX: N39.0 Urinary tract infection, site not specified (principal) | CPT/HCPCS: 51705 ==

== ENCOUNTER → 2025-03-21 09:01 | Outpatient (BNVA) | payer MEDICAID, SELFPAY | PROVIDERS: PCP Internal Medicine Geriatric Medicine; Visit Provider Urology | DX: N31.9 Neuromuscular dysfunction of bladder, unspecified (principal) | CPT/HCPCS: 51705 ==